=== PATIENT | female | born 1940 | race Caucasian/White ===

== ENCOUNTER 2021-12-02 13:39 | Emergency (ER) | payer MEDICARE, OTHER, SELFPAY ==
[2021-12-02 13:52] VITALS: BP 140/71; PULSE 97; RESP 18; TEMP 36.8; O2SAT 98; BMI 19.5
--- NOTE | 2021-12-02 14:24 | ED_ITS ---
HPI - General Adult General Chief complaint: Cough Stated complaint: Cough, nose runs continuously Time Seen by Provider: 12/02/21 13:42 Source: patient Mode of arrival: ambulatory Limitations: no limitations History of Present Illness HPI narrative: 81-year-old female coming in today complaining of runny nose and cough. States it has been going on for about 3 weeks. She states that she does have yearly allergies around this time, she generally treat her allergies with rest and hydration. Usually they last 1-2 weeks. Since they have been going on for 3 weeks this has her concerned. Cough can occur anytime of the day. Sometimes she spits up some phlegm. She denies any fevers or chills. No changes in her appetite. She is not weak or short of breath. Patient takes cholesterol medication and gabapentin her back pain. No new medications. She has not tried any allergy medications. Related Data Home Medications Medication Instructions Recorded Confirmed alendronate 70 mg tablet mg PO 12/02/21 cyclobenzaprine 10 mg tablet mg 12/02/21 gabapentin 300 mg capsule mg 12/02/21 simvastatin 40 mg tablet mg 12/02/21 Allergies Allergy/AdvReac Type Severity Reaction Status Date / Time Penicillins Allergy Intermediate Verified 12/02/21 13:58 Review of Systems Status of ROS: Reports: 10 or more systems reviewed and unremarkable except as noted in History and below Exam Narrative: Exam Narrative: Well-nourished well-developed patient in no acute distress. Alert and oriented. Answers questions appropriately. Mood and affect are appropriate. Thoughts are goal oriented and rational. No tangential or magical thinking noted. Patient speaks in full sentences without needing to catch their breath. Speech is not slurred or pressured. Patient is not appear ill or toxic. HEENT: Normocephalic atraumatic. Pupils are equally round reactive to light. Extraocular muscles are intact. Conjunctivae are moist without any icterus noted. Moist mucous membranes. Neck is supple. Nasal turbinates are slightly boggy and swollen. Cardiovascular: Heart is regular rate and rhythm S1 and S2 are present without any murmurs. Lungs: Clear to auscultation bilaterally no wheezes rhonchi or rales are appreciated. Patient takes deep breaths without any discomfort. Skin: Well perfused without any obvious rashes. Const: Vital Signs, click to edit/add: Vital Signs - 24 hr 12/02/21 13:52 Temperature 98.3 F Pulse Rate [Pulse Oximeter] 97 Respiratory Rate 18 Blood Pressure [Ri ght Upper Arm] 140/71 H Pulse Oximetry 98 Oxygen Delivery Me thod Room Air Course Vital Signs Vital signs: Initial Vital Signs Temperature 98.3 F 12/02/21 13:52 Temperature Source Temporal Artery Scan 12/02/21 13:52 Pulse Rate 97 12/02/21 13:52 Respiratory Rate 18 12/02/21 13:52 Blood Pressure 140/71 H 12/02/21 13:52 Blood Pressure Mean 94 12/02/21 13:52 Blood Pressure Position Supine 12/02/21 13:52 Pulse Oximetry 98 12/02/21 13:52 Oxygen Delivery Method 12/02/21 13:52 Vital Signs Temperature 98.3 F 12/02/21 13:52 Pulse Rate 97 12/02/21 13:52 Respiratory Rate 18 12/02/21 13:52 Blood Pressure 140/71 H 12/02/21 13:52 Pulse Oximetry 98 12/02/21 13:52 Oxygen Delivery Method 12/02/21 13:52 Temperature 98.3 F 12/02/21 13:52 Pulse Rate 97 12/02/21 13:52 Respiratory Rate 18 12/02/21 13:52 Blood Pressure 140/71 H 12/02/21 13:52 Pulse Oximetry 98 12/02/21 13:52 Oxygen Delivery Method 12/02/21 13:52 Medical Decision Making MDM Narrative Medical decision making narrative: 81-year-old female with seasonal allergies. We discussed [id number] antihistamines and steroid nasal sprays. We discussed reasons for follow-up. Patient was agreeable had no other questions. Discharge Plan Discharge Clinical Impression: Post-nasal drip, Seasonal allergic rhinitis Patient Disposition: Home, Self-Care Condition: Stable Additional Instructions: Recommend you start a daily allergy medication such as Claritin or Zyrtec. These can be purchased [id number] and they are non drowsy. You can also try taking a Benadryl in the evening-this can make you very sleepy. Lastly recommend a Flonase or Nasonex nasal spray. This will dry up the nose and should help with your cough as well. This can also be purchased [id number]. Follow-up with your primary care provider as needed. Return to the ER if you develop a fever or worsening cough. Prescriptions: No Action cyclobenzaprine 10 mg tablet alendronate 70 mg tablet PO Label Comments: TAKE 1 TABLET BY MOUTH ONCE A WEEK IN THE MORNING. TAKE ON AN EMPTY STOMACH WITH FULL GLASS OF WATER. DO NOT LIE DOWN FOR 1 HOUR simvastatin 40 mg tablet gabapentin 300 mg capsule Follow Up/Referrals: Yessenia Cross MD [Primary Care Provider] - Stand Alone Forms: [facility] Info Instructions
[2021-12-02 14:36] VITALS: BP 140/71; PULSE 97; RESP 18; TEMP 36.8
== END 2021-12-02 14:38 | disposition home or self-care (01) ==
LOC: ED 14:36
PROVIDERS: Emergency Provider Family Medicine; PCP Family Medicine
DX: J30.9 Allergic rhinitis, unspecified (principal)
CPT/HCPCS: 99283

== ENCOUNTER 2022-01-15 10:30 | Outpatient (CLI) | payer MEDICARE, OTHER, SELFPAY | END 2022-01-15 10:31 | disposition home or self-care (01) | PROVIDERS: PCP Family Medicine; Visit Provider Family Medicine | DX: M51.36 Other intervertebral disc degeneration, lumbar region (principal); M54.16 Radiculopathy, lumbar region | CPT/HCPCS: 64483; J1100; Q9966 ==

== ENCOUNTER 2022-07-26 09:43 | Outpatient (CLI) | payer MEDICARE, OTHER, SELFPAY | END 2022-07-26 09:44 | disposition home or self-care (01) | LOC: INJ CL 09:45 | PROVIDERS: Visit Provider Family Medicine | DX: M51.36 Other intervertebral disc degeneration, lumbar region (principal); M54.16 Radiculopathy, lumbar region | CPT/HCPCS: 62323; J0702; Q9966 ==

== ENCOUNTER 2022-08-25 07:32 | Emergency (ER) | payer MEDICARE, OTHER, SELFPAY ==
[2022-08-25 07:41] VITALS: BP 146/103; PULSE 66; RESP 20; TEMP 35.9; O2SAT 96; BMI 19.0
--- NOTE | 2022-08-25 08:30 | ED.NURSE ---
did cleanse wound with saline. used bacitracin, Telfa, Kerlix and Coban.
--- NOTE | 2022-08-25 09:10 | ED.GENADULT ---
HPI - General Adult General Chief complaint: Skin/Abscess/Foreign Body Stated complaint: Right arm laceration Time Seen by Provider: 08/25/22 08:04 Source: patient Mode of arrival: ambulatory Limitations: no limitations History of Present Illness HPI narrative: Patient is an 81-year-old woman who 1 week ago had a wooden frame fall against her right upper arm and sustained a skin tear. She said normally she would have come in right away but she had 20 people saying her house for a so she just bandaged it up. She looked at it this morning and thought maybe it was infected. Related Data Home Medications Medication Instructions Recorded Confirmed alendronate 70 mg tablet mg PO 12/02/21 cyclobenzaprine 10 mg tablet mg 12/02/21 gabapentin 300 mg capsule mg 12/02/21 simvastatin 40 mg tablet mg 12/02/21 Allergies Allergy/AdvReac Type Severity Reaction Status Date / Time Penicillins Allergy Intermediate Verified 12/02/21 13:58 aspirin [From Percodan] Allergy Verified 07/26/22 10:33 diphenhydramine Allergy Verified 07/26/22 10:33 [From Benadryl] oxycodone Allergy Verified 07/26/22 10:33 PFSH PFSH Social History Smoking Status: Current some day smoker How often do you have a drink containing alcohol: never How often do you have six or more drinks on one occasion: Never AUDIT-C Alcohol total score: 0 Non-prescribed substance use: denies use service: No Exam Narrative: Exam Narrative: Vital signs reviewed In general, alert, well-appearing elderly woman. Extremities: Examination of the right upper extremity shows a skin tear. The upper half of it is exposed and the lower half is covered by the displaced skin, which is slightly bunched since it is not stretched over the entire wound. Overall however the wound looks healthy and is healing well. There is no surrounding erythema or drainage. Const: Vital Signs, click to edit/add: Vital Signs - 24 hr 08/25/22 07:41 Temperature 96.7 F L Pulse Rate [Pulse Oximeter] 66 Respiratory Rate 20 Blood Pressure [Le ft Upper Arm] 146/103 H Pulse Oximetry 96 Oxygen Delivery Me thod Room Air Course Course Hospital Course: I did attempt to gently lift the edge of the skin to see if I could stretch over the entire wound but it is well adhered at this point and began to bleed as I lifted it, so I have recommended to her that we just leave it as is. I think this will heal just fine although I told her it probably will take several weeks for it to heal completely. In the meantime I have recommended using an ointment such as Vaseline keeping it covered, and in the unlikely event that she develops any signs of infection to be seen again. Her tetanus is up-to-date. She is comfortable with that plan. Vital Signs Vital signs: Initial Vital Signs Temperature 96.7 F L 08/25/22 07:41 Temperature Source Temporal Artery Scan 08/25/22 07:41 Pulse Rate 66 08/25/22 07:41 Pulse Rhythm Regular 08/25/22 07:41 Respiratory Rate 20 08/25/22 07:41 Blood Pressure 146/103 H 08/25/22 07:41 Blood Pressure Mean 117 H 08/25/22 07:41 Blood Pressure Position Sitting 08/25/22 07:41 Pulse Oximetry 96 08/25/22 07:41 Oxygen Delivery Method Room Air 08/25/22 07:41 Vital Signs Temperature 96.7 F L 08/25/22 07:41 Pulse Rate 66 08/25/22 07:41 Respiratory Rate 20 08/25/22 07:41 Blood Pressure 146/103 H 08/25/22 07:41 Pulse Oximetry 96 08/25/22 07:41 Oxygen Delivery Method Room Air 08/25/22 07:41 Temperature 96.7 F L 08/25/22 07:41 Pulse Rate 66 08/25/22 07:41 Respiratory Rate 20 08/25/22 07:41 Blood Pressure 146/103 H 08/25/22 07:41 Pulse Oximetry 96 08/25/22 07:41 Oxygen Delivery Method Room Air 08/25/22 07:41 Discharge Plan Discharge Clinical Impression: Skin tear Patient Disposition: Home, Self-Care Condition: Stable Instructions: Skin Tear (ED) Additional Instructions: Keep an ointment such as Vaseline or Aquaphor on this while it heals and keep it covered. Change the dressing about once a day or after you shower. I do not anticipate any problems with infection but if you see increasing redness, swelling or pain return for re-evaluation. It will probably take several weeks for this to completely heal. Prescriptions: No Action cyclobenzaprine 10 mg tablet alendronate 70 mg tablet PO Patient Comments: TAKE 1 TABLET BY MOUTH ONCE A WEEK IN THE MORNING. TAKE ON AN EMPTY STOMACH WITH FULL GLASS OF WATER. DO NOT LIE DOWN FOR 1 HOUR simvastatin 40 mg tablet gabapentin 300 mg capsule Follow Up/Referrals: Provider,Not a Local [Referring] - Stand Alone Forms: [facility] Info Instructions
== END 2022-08-25 08:35 | disposition home or self-care (01) ==
PROVIDERS: Emergency Provider Emergency Medicine; PCP Family Medicine
DX: S41.111A Laceration without foreign body of right upper arm, initial encounter (principal)
CPT/HCPCS: 99282; 99283

== ENCOUNTER 2022-12-03 10:01 | Outpatient (CLI) | payer MEDICARE, OTHER, SELFPAY | END 2022-12-03 10:02 | disposition home or self-care (01) | LOC: INJ CL 10:03 | PROVIDERS: PCP Family Medicine; Visit Provider Family Medicine | DX: M51.36 Other intervertebral disc degeneration, lumbar region (principal); M54.16 Radiculopathy, lumbar region | CPT/HCPCS: 62323; J0702; Q9966 ==

== ENCOUNTER 2023-05-24 12:08 | Outpatient (CLI) | payer MEDICARE, OTHER, SELFPAY ==
--- OUTSIDE RECORDS SUMMARY | 2023-05-29 06:10 | XMS_ITS | Clinical Summary ---
Author Name Unknown Organization [facility] Address [place], [place] [address] Care Team Providers Care Percolator Operator Name Role Phone Clare Marin DO Primary Care Provider [phone] Allergies Active Allergy Reactions Criticality Noted Date Comments Diphenhydramine *Unknown - Pt Doesn't Remember 08/12/2018 Oxycodone Nausea Only 08/05/2018 Penicillins 06/17/2006 Oxycodone-Aspirin Nausea Only,Dizziness 009 Medications Medication Sig Dispensed Refills Start Date End Date Status zinc 15 mg tablet Take 15 mg by mouth. Once weekly 0 0 Active multivitamin (MVI) tablet Take 1 tablet by mouth once daily. 0 0 Active cholecalciferol (VITAMIN D) 1,000 unit capsuleIndications: Vitamin D deficiency Take 2 capsules by mouth once daily. 0 3 Active cyclobenzaprine (FLEXERIL) 10 mg tabletIndications:D DD (degenerative disc disease), lumbar Take 1 Tablet (10 mg) by mouth every 8 hours if needed for Muscle Spasm. 30 Tablet 3 Active simvastatin (ZOCOR) 40 mg tabletIndications:M ixed hyperlipidemia Take 1 Tablet (40 mg) by mouth at bedtime. 90 Tablet 3 3 Active alendronate (FOSAMAX) 70 mg tabletIndications:O steopenia, unspecified location Take 1 Tablet (70 mg) by mouth once a week in the morning. Take on empty stomach with full glass of water. Do not lie down for 1 hr. 13 Tablet 2 3 Active gabapentin (NEURONTIN) 300 mg capsuleIndications: Hereditary and idiopathic peripheral neuropathy TAKE 1 CAPSULE(300 MG) BY MOUTH TWICE DAILY 180 Capsule 4 Active gabapentin (NEURONTIN) 300 mg capsuleIndications: Hereditary and idiopathic peripheral neuropathy Take 1 Capsule (300 mg) by mouth two times daily. 180 Capsule 3 3 05/18/19 24 Discontinued mupirocin (BACTROBAN OINTMENT) ointmentIndications :Abscess Apply topically to affected area(s) three times daily for 5 days. 22 g 4 05/28/19 24 Active Problems Problem Noted Date Diagnosed Date Seasonal allergic rhinitis 05/06/202205/06 Post-nasal drip 05/06/2022 05/06/2022 Lumbosacral radiculopathy at L5 05/06/2022 05/06/2022 Sensorineural hearing loss of both ears 04/22/19 Tinnitus 04/22/2019 Osteopenia 05/01/2017 DDD (degenerative disc disease), lumbar 04/18/19 17 Overview: Multilevel with foraminal stenosis Acute back pain with sciatica 12/19/2015 Other seborrheic keratosis 11/27/2011 Vitamin D deficiency 05/25/2009 Actinic keratosis 05/25/2009 Mixed hyperlipidemia 02/11/2007 Tobacco use disorder 01/28/2007 Unspecified hereditary and idiopathic peripheral neuropathy 06/17/2006 Overview: left foot only: lateral 3 toes: improved with Neurontin. 07/04/2010 Encounters Date Type Department Care Team Description 05/26/2023 2:10 PM CDT Office Visit [facility] [address] [place] [address] Clare Marin, DO Syncope (Pt reports fainting Friday morning 05/23 - felt woozy prior to this happening, did hit head but reports not losing consciousness - no headaches or vision changes. Was checked out by EMS, vitals were stable ) 05/26/2023 Travel 05/26/2023 Telephone [facility] [address] [place] [address] Clare Marin, DO Dizziness 05/23/2023 3:00 PM CDT Office Visit [facility] [address] [place] [address] Clare Marin, DO Leg Pain/problem (Lump on L navarro from metal puncture, x2 months); Derm Problem (Spot on tip of nose x3 years would like looked at); Ear Problem (Look in ears - see if they need to be cleaned out) 05/23/2023 Travel 05/17/2023 Refill [facility] [address] [place] [address] gNa Sanchez MD Refill Request (Gabapentin) from Last 3 Months Immunizations Name Administration Dates Next Due COVID-19 vaccine (Moderna 100mcg/0.5mL) PF, MDV 05/09/2021,12/06/2020,04/28/2020,2020 COVID-19 vaccine ([employer] NT[employer] 30mcg/0.3mL) 12YO+ BIVALENT PF, MDV 11/21/2021 Influenza, High-dose Inactivated 11/21/2015,11/11,10/19/2013 Influenza, IIV3 (Age >=3 years) 12/23/2012,01/21,01/28/2007 Influenza, IIV4 11/08/2018 Influenza, IIV4 (=>6mos) MDV 11/08/2018 Influenza, Inactivated AIIV4 (Age 65+ Years) Preserv Free 11/15/2021,11/02/2020,11/04/2019 Influenza, Inactivated IIV3 (Age 65+ Years) Preserv Free 11/25/2017,10/22/2016 Pneumococcal Poly,23-Valent (Pneumovax) 01/28/2007 Pneumococcal conj 13-Valent (Prevnar 13) 11/29/2014 Td (Age >=7 Years) 07/24/2020,11/22/2004 Td, Preservative Free (age > = 7 Years) 11/22/2004 Tdap 08/06/2011 Zoster (Shingrix-RZV, recombinant) 07/18/2017, Zoster (Zostavax-ZVL, live) 01/28/2007 Family History Medical History Relation Name Comments Alcohol/Drug Father Monster Conrad Heart Disease Father Monster Conrad Other Father Monster Conrad smoker Cancer-breast Maternal Aunt 1 over 50 Cancer-colon Maternal Aunt 1 Other Maternal Aunt 2 liver Other Maternal Aunt 3 lung Diabetes Maternal Grandmother Heart Disease Maternal Grandmother Psychiatric illness Maternal Grandmother Psychiatric illness Mother Chelsea Cancer-breast Other 1 x2 cousin Psychiatric illness Other 2 cousin Cancer-colon Paternal Grandfather Other Paternal Grandfather liver Arthritis Paternal Grandmother Other Sister 4 Rosario Bowel Problems: unpredictable loose stools Relation Name Status Comments Brother Steven Alive Father Monster Conrad (Age 69) M I; driving himself to the hospital Maternal Aunt 1 Maternal Aunt 2 Maternal Aunt 3 Maternal Grandmother Mother Chelsea Alive Other 1 Other 2 Paternal Grandfather Paternal Grandmother Sister 1 Vi Alive Sister 2 Taniya Alive Sister 3 Kaci (Age 43) Brynmaxime Wade y: Heart Problems when young Sister 4 Rosario Social History Tobacco Use Types Packs/Day Years Used Date Smoking Tobacco: Light Smoker Cigarettes 0.3 46 Smokeless Tobacco: Never Tobacco Cessation:Ready to Q uit: Not Asked; Counseling Given: Not Answered Comments:<1 pk/week Alcohol Use Standard Drinks/Week Comments No 0 (1 standard drink = 0.6 oz pur e alcohol) PHQ-2 Answer Date Recorded PHQ-2 TOTAL SCORE 0 06/05/2022 Social Connections Answer Date Recorded Frequency of Communication with Friends and Fami ly 0 06/02/2022 Financial Resource Strain Answer Date R ecorded Difficulty of Paying Living Expenses 3 06/02/2022 Difficulty of Paying Living Expenses Not on file 06/02/2022 Food Insecurity Answer Date Recorded Worried About Running Out of Food in the Last Ye ar 1 06/02/2022 Transportation Needs Answer Date Record ed Lack of Transportation (Medical) 1 06/02/2022 Housing Stability Answer Date Recorded Unable to Pay for Housing in the Last Year 1 06/02/2022 Sex and Gender Information Value Date Recorded Sex Assigned at Not on file Gender Identity Not on file Sexual Orientation Not on file Obstetrics History Para Term AB IAB SAB Ectopic Multiple Livin g Live Births 3 3 3 Date Outcome GA Total Labor Labor/2nd/3rd Weight Sex Delivery Anes PTL Tasha A1 A5 Name Cl in Para Para Para Last Filed Vital Signs Vital Sign Reading Time Taken Comments Blood Pressure 109/63 05/26/2023 2:17 PM CDT Pulse 81 05/26/2023 2:17 PM CDT Temperature 36.9 ??C (98.4 ??F) 07/16/2022 3:50 PM CD T Respiratory Rate 16 07/16/2022 3:50 PM CDT Oxygen Saturation 95% 05/26/2023 2:17 PM CDT Inhaled Oxygen Concentration - - Weight 47.7 kg (105 lb 3.2 oz) 05/23/2023 2:10 P M CDT Height 157.5 cm (5' 2) 07/16/2022 3:50 PM CDT Body Mass Index 19.24 07/16/2022 3:50 PM CDT Plan of Treatment Health Maintenance Due Date Last Done Comments Depression screening for age 12+ 06/06/2023 06/05/2022, 05/23/2021, 02/09/2020, Additional history exists Medicare Wellness for age 65+ 06/06/2023, 05/23/2021, 02/09/2020, Additional history exists BMI (ht and wt on same day) for age 18+ 07/17/2023 07/16/2022, 06/05/2022, 05/23/2021, Additional history exists Influenza for age 65+ 10/12/2023 11/15/2021 , 11/02/2020, 11/04/2019, Additional history exists Tetanus booster 07/24/2030 07/24/2020, 07/12, 11/22/2004, Additional history exists Tdap Completed 08/06/2011 Pneumococcal series for age 65+ Completed 5, 01/28/2007 Zoster (shingles) series for age 50+ Completed 07/18/2017, 05/15/2017, 01/28/2007 DEXA/DXA scan for age 65+ Completed 2022, 06/14/2020, 06/05/2017, Additional history exists COVID-19 vaccine series Completed 11/09/19 23, 11/21/2021, 05/09/2021, Additional history exists Procedures Procedure Name Priority Date/Time Associated Diagnosis Comments XR DXA BONE DENSITY 2 SITES AXIAL Routine 08/29/2022 10:32 AM CDT Osteopenia, unspecified location Other specified disorders of bone density and structure, other site from Last 3 Months or Most Recently Relevant to Health Maintenance Results * (ABNORMAL) XR DXA BONE DENSITY 2 SITES AXIAL (08/29/2022 10:32 AM CDT) Anatomical Region Laterality Modality Spine, HIPS, HIPL, HIPR Other Impressions 09/03/2022 2:48 PM CDT Osteopenia. Due to the stability of the bone density, continue present medication if indicated. RECOMMENDATIONS: The National Osteoporosis Foundation recommends pharmacologic treatment for patients with T-scores of -2.5 or less, patients with prior history of fragility fractures, or patients with 10-year probability of greater than 3% at hips or greater than 20% of suffering major osteoporotic fractures. Recommend continued optimization of calcium and vitamin D intake through dietary means and/or supplementation and regular exercise. Repeat scan recommended in 2 years. Laisha Mehta PA-C [facility] 09/03/2022 Narrative 09/03/2022 2:48 PM CDT For Patients: Results are automatically released to your [facility] [email or web address] account once available, in compliance with federal regulations. This means that you may see your results before your provider has had a chance to review them. Please allow 2-3 business days for your provider to comment on the results. XR DXA Bone Mineral Density (BMD) EXAM LOCATION: [address] [address] PATIENT NAME: Heidi Sarah DATE OF : 1940 EXAM DATE: 08/29/2022 REQUESTING PROVIDER: Nga Sanchez MD GENDER AT : female HEIGHT: 5' 2 (07/16/2022) WEIGHT: ??111 lb 8 oz (07/16/2022) MENOPAUSAL STATUS: Postmenopausal RACE/ETHNICITY: White RISK FACTORS: Family History of Osteoporosis, Height Loss (2 inches or more), Smoking (current), Smoking (prior), Weight < 127 lbs., and White Race CURRENT MEDICATION FOR BONE LOSS: Alendronate (Fosamax) INDICATION: Follow-up of existing osteopenia and Follow-up of pharmacologic treatment COMPARISON DATE(S): 2020 DXA scans are compared to prior studies for a patient only when the two (or more) studies were performed on the same scanner. It is not possible to compare data generated on one scanner to data from another because there are not standards in DXA equipment. This applies even if the two scanners are made by the same engineering project manager. PROCEDURE: Dual-energy x-ray absorptiometry performed with routine technique. Reporting is completed in the form of a T-score. The T-score represents the standard deviation from peak bone mass based on young healthy adult. A Z-score is used for diagnosis in premenopausal women, and for men under the age of 50. FINDINGS: RESULT LUMBAR SPINE L1 - L2 ??(EXCLUDE L3, L4) BMD: 1.665 g/cm2 T-Score: + 4.0 Z-Score: + 6.4 RESULTS FEMUR Left femoral neck BMD: 0.777 g/cm2 T-Score: - 1.9 Z-Score: + 0.6 Change from prior in 2020: ??Decrease 3.4%. Right femoral neck BMD: 0.834 g/cm2 T-Score: - 1.5 Z-Score: + 1.0 Change from prior in 2020: ??Increase 2.5%. Left hip BMD: 0.847 g/cm2 T-Score: - 1.3 Z-Score: + 1.1 Change from prior in 2020: ??Increase 0.8%. Right hip BMD: 0.896 g/cm2 T-Score: - 0.9 Z-Score: + 1.5 Change from prior in 2020: ??Increase 1.6%. WHO criteria: Normal: T-score at or above -1 SD Osteopenia: T-score between -1.1 and -2.4 SD Osteoporosis: T-score at or below -2.5 SD Nga Sanchez MD DEXA from Last 3 Months or Most Recently Relevant to Health Maintenance Advance Directives Documents on File Type Date Recorded Patient Scientist Propagator Expl anation Healthcare Directive 03/06/2015 9:15 AM [facility] E [facility], TERRIE [place], 04/18/1983 Care Teams Percolator Operator Relationship Specialty Start Date End Date Clare Marin DO [address] [place] [address] PCP - General Family Practice 09/13/22
== END 2023-05-24 12:09 | disposition home or self-care (01) ==
LOC: AMB 05-29 06:09
PROVIDERS: PCP Family Medicine; Visit Provider Family Medicine
DX: R55 Syncope and collapse (principal)
CPT/HCPCS: A0998

== ENCOUNTER 2023-06-24 12:42 | Emergency (ER) | payer MEDICARE, OTHER, SELFPAY ==
[2023-06-24 13:17] VITALS: BP 150/79; PULSE 80; RESP 18; TEMP 36.9; O2SAT 96; BMI 18.4
--- NOTE | 2023-06-24 13:45 | CT_ITS ---
Patient: GLADIS MATHIS Facility:?[facility] Patient ID:?[id number] Site Patient ID:?[id number]. Site :?1940 Study:?CT-Abdomen/Pelvis WO-06/24/2023 2:18:19 PM Ordering Physician:CAITLIN Final Report: INDICATION: Left flank pain. TECHNIQUE: CT abdomen and pelvis without contrast. COMPARISON: None. FINDINGS: Limited evaluation of the intra-abdominal solid organs without IV contrast. Lower chest: Unremarkable. Liver: Lobulated right hepatic lobe. Small fluid adjacent to the right liver. Gallbladder and bile ducts: Cholelithiasis. No definite thickening of the gallbladder wall. No pericholecystic fluid. Pancreas: Unremarkable. No mass or inflammation. Spleen: Normal in size. No masses. Adrenal glands: Normal in size. No nodules. Kidneys: Normal in size. No suspicious masses, stones, or hydronephrosis. GI tract: A few scattered colonic diverticuli. No evidence of diverticulitis. No bowel obstruction. Appendix is not well visualized. Vasculature: Abdominal aorta is normal in caliber. Lymph nodes: No lymphadenopathy. Peritoneum/Abdominal Wall: Unremarkable. No sign of mass or infiltration. No free air or significant free fluid. Pelvis: Unremarkable. No pelvic masses. Bones: Scoliosis of the spine. Degenerative changes. Otherwise unremarkable for age. IMPRESSION: No acute intra-abdominal process identified. No renal stones or hydronephrosis. Please note that all CT scans at this facility use dose modulation, iterative reconstruction, and/or weight-based dosing when appropriate to reduce radiation dose to as low as reasonably achievable. Dictated by Go Kelley MD @ 06/24/2023 3:16:06 PM Signed by:?Go Kelley MD @06/24/2023 3:16:06 PM (Electronic Signature)
--- OUTSIDE RECORDS SUMMARY | 2023-06-24 13:51 | XMS_ITS | Clinical Summary ---
Author Name Unknown Organization [facility] Address [place], [place] [address] Care Team Providers Care Barrel And Receiver Aligner Name Role Phone Clare Marin DO Primary Care Provider [phone] Allergies Active Allergy Reactions Criticality Noted Date Comments Diphenhydramine *Unknown - Pt Doesn't Remember 08/12/2018 Oxycodone Nausea Only 08/05/2018 Penicillins 06/17/2006 Oxycodone-Aspirin Nausea Only,Dizziness 009 Medications Medication Sig Dispensed Refills Start Date End Date Status zinc 15 mg tablet Take 15 mg by mouth. Once weekly 0 05/25/2009 Active multivitamin (MVI) tablet Take 1 tablet by mouth once daily. 0 05/25/2009 Active cholecalciferol (VITAMIN D) 1,000 unit capsuleIndications:V itamin D deficiency Take 2 capsules by mouth once daily. 0 12/23/2012 Active cyclobenzaprine (FLEXERIL) 10 mg tabletIndications:DD D (degenerative disc disease), lumbar Take 1 Tablet (10 mg) by mouth every 8 hours if needed for Muscle Spasm. 30 Tablet 05/06/2022 Active simvastatin (ZOCOR) 40 mg tabletIndications:Mi xed hyperlipidemia Take 1 Tablet (40 mg) by mouth at bedtime. 90 Tablet 3 06/05/2022 Active alendronate (FOSAMAX) 70 mg tabletIndications:Os teopenia, unspecified location Take 1 Tablet (70 mg) by mouth once a week in the morning. Take on empty stomach with full glass of water. Do not lie down for 1 hr. 13 Tablet 2 01/02/2023 Active gabapentin (NEURONTIN) 300 mg capsuleIndications:H ereditary and idiopathic peripheral neuropathy TAKE 1 CAPSULE(300 MG) BY MOUTH TWICE DAILY 180 Capsule 05/18/2023 Active mupirocin (BACTROBAN OINTMENT) ointmentIndications: Abscess Apply topically to affected area(s) three times daily for 5 days. 22 g 05/23/2023 Active Problems Problem Noted Date Diagnosed Date Seasonal allergic rhinitis 05/06/202205/06 Post-nasal drip 05/06/2022 05/06/2022 Lumbosacral radiculopathy at L5 05/06/2022 05/06/2022 Sensorineural hearing loss of both ears 04/22/19 Tinnitus 04/22/2019 Osteopenia 05/01/2017 DDD (degenerative disc disease), lumbar 04/18/19 Overview: Multilevel with foraminal stenosis Acute back pain with sciatica 12/19/2015 Other seborrheic keratosis 11/27/2011 Vitamin D deficiency 05/25/2009 Actinic keratosis 05/25/2009 Mixed hyperlipidemia 02/11/2007 Tobacco use disorder 01/28/2007 Unspecified hereditary and idiopathic peripheral neuropathy 06/17/2006 Overview: left foot only: lateral 3 toes: improved with Neurontin. 07/04/2010 Encounters Date Type Department Care Team Description 06/10/2023 Telephone [facility] [address] [place] [address] Terrell Salguero MD Error-please disregard 06/09/2023 Telephone [facility] [address] [place] [address] Terrell Salguero MD Appointment Request (Back pain) 05/26/2023 2:10 PM CDT Office Visit [facility] [address] [place] [address] Clare Marin, DO Syncope (Pt reports fainting Friday morning 05/23 - felt woozy prior to this happening, did hit head but reports not losing consciousness - no headaches or vision changes. Was checked out by EMS, vitals were stable ) 05/26/2023 Travel 05/26/2023 Telephone [facility] [address] [place] [address] Clare Marin Tasha, DO Dizziness 05/23/2023 3:00 PM CDT Office Visit [facility] [address] [place] [address] [address] Sir Marini Tasha, DO Leg Pain/problem (Lump on L navarro from metal puncture, x2 months); Derm Problem (Spot on tip of nose x3 years would like looked at); Ear Problem (Look in ears - see if they need to be cleaned out) 05/23/2023 Travel 05/17/2023 Refill [facility] [address] [place] [address] Nga Sanchez MD Refill Request (Gabapentin) from Last 3 Months Immunizations Name Administration Dates Next Due COVID-19 vaccine (Moderna 100mcg/0.5mL) PF, MDV 05/09/2021,12/06/2020,04/28/2020,2020 COVID-19 vaccine (Virtru-Bio NTech 30mcg/0.3mL) 12YO+ BIVALENT PF, MDV 11/21/2021 [...] Taniya Alive Sister 3 Kaci (Age 43) Jonelle Wade y: Heart Problems when young Sister [...] of Communication with Friends and Fami ly Not on file 06/09/2023 Financial Resource Strain Answer Date R ecorded [...] 07/16/2022 3:50 PM CDT Plan of Treatment Upcoming Encounters Date Type Department Care Team (Late st Contact Info) Description 07/04/2023 10:40 AM CDT Office Visit [facility] at [facility] [address] [place] [address] Terrell Salguero MD [address] [place] [address] 08/08/2023 9:20 AM CDT Office Visit [facility] [address] [place] [address] Terrell Salguero MD [address] [place] [address] Health Maintenance Due Date Last Done Comments [...] Additional history exists COVID-19 vaccine series Completed 11/09/19, 11/21/2021, 05/09/2021, Additional history exists Procedures Procedure [...] recommended in 2 years. Laisha Mehta PA-C [facility] 09/03/2022 Narrative 09/03/2022 2:48 PM CDT For Patients: Results are automatically released to your [employer]) account once available, in compliance with federal regulations. This means that you may see your results before your provider has had a chance to review them. Please allow 2-3 business days for your provider to comment on the results. XR DXA Bone Mineral Density (BMD) EXAM LOCATION: [address] [address] PATIENT NAME: Heidi Sarah DATE OF : [...] two scanners are made by the same gas regulator repairer helper. PROCEDURE: Dual-energy x-ray absorptiometry performed with routine [...] Documents on File Type Date Recorded Patient Research Methods Instructor Expl anation Healthcare Directive 03/06/2015 9:15 AM TH TERRIE ANTOINE, 04/18/1983 Care Teams Barrel And Receiver Aligner Relationship Specialty Start Date End Date Clare Marin DO [address] [place] [address] PCP - General Family Practice 09/13/22
--- NOTE | 2023-06-24 13:54 | ED_ITS ---
HPI - General Adult General Date Seen: 06/24/23 Chief complaint: Back Injury/Pain Stated complaint: back pain Time Seen by Provider: 06/24/23 13:12 Source: patient, RN notes reviewed and old records reviewed Mode of arrival: ambulatory Limitations: no limitations History of Present Illness HPI narrative: Patient is an 82-year-old woman who presents with back pain. She notes that she does have a very long history of back pain, osteoarthritis, scoliosis etcetera. However, she has been having pain in her left flank which is an unusual place for her to have back pain. It has been persistent for the past several days, she can not get comfortable, not specifically worsened with movement and she has been having difficulty sleeping. She denies any respiratory symptoms, pleuritic pain, fevers. She has not had urinary symptoms, abdominal pain, nausea vomiting diarrhea black or bloody stools. She has no radiating pain. She did have a fall about a month ago, but says after couple of days her brief increase in pain related to the fall seem to resolve. She was seen at [facility] a few days after that, no imaging was done and she says overall she has been feeling fine until the last few days. She denies any unexpected weight loss or night sweats. She does smoke, lives independently. Describes herself as generally healthy. Notes that stronger pain medications cause an upset stomach. Related Data Home Medications Medication Instructions Recorded Confirmed alendronate 70 mg tablet 70 mg PO .weekly 12/02/21 06/24/23 gabapentin 300 mg capsule 300 mg PO Q12H 12/02/21 06/24/23 simvastatin 40 mg tablet 40 mg PO DAILY 12/02/21 06/24/23 cholecalciferol (vitamin D3) 25 1,000 unit PO DAILY 06/24/23 06/24/23 mcg (1,000 unit) capsule cyclobenzaprine 10 mg tablet 10 mg PO Q8H PRN 06/24/23 06/24/23 zinc 15 mg tablet 15 mg PO DAILY 06/24/23 06/24/23 Previous Rx's Medication Instructions Recorded tramadol 50 mg tablet 50 mg PO QHS #10 tabs 06/24/23 Allergies Allergy/AdvReac Type Severity Reaction Status Date / Time Penicillins Allergy Intermediate Verified 06/24/23 13:22 aspirin [From Percodan] Allergy Verified 06/24/23 13:22 diphenhydramine Allergy Verified 06/24/23 13:22 [From Benadryl] oxycodone Allergy Verified 06/24/23 13:22 Review of Systems Status of ROS: Reports: 10 or more systems reviewed and unremarkable except as noted in History and below [facility] Social History Smoking Status: Current some day smoker What tobacco products do you use: cigarettes Do you use any of these nicotine containing products: None Second hand tobacco smoke exposure: No How often do you have a drink containing alcohol: never How often do you have six or more drinks on one occasion: Never AUDIT-C Alcohol total score: 0 Non-prescribed substance use: denies use service: No Exam Narrative: Exam Narrative: Vital signs as noted above. In general, an alert, well-appearing patient. Head: Normocephalic, atraumatic. Eyes: Pupils are equal reactive. Extraocular movements are full. Conjunctivae are normal. ENT: Mucous membranes are moist. Neck: Supple without lymphadenopathy. Heart: Regular rate and rhythm. No murmur or rub. Lungs: Clear bilaterally. No increased work of breathing, crackles or wheezes. Abdomen: Soft and nontender. No organomegaly. No CVA tenderness, no tenderness of the flank to palpation. Back: Nontender to palpation. Scoliosis. Extremities: Well perfused. No edema. No calf tenderness. Pulses intact. Neurologic: Patient is alert and oriented to person and place. Speech is fluent. Face is symmetric. Moves all extremities equally. Affect: Normal. Skin: Warm and dry. Well perfused. Const: Vital Signs, click to edit/add: Vital Signs - 24 hr 06/24/23 13:17 Temperature 98.4 F Pulse Rate [Pulse Oximeter] 80 Respiratory Rate 18 Blood Pressure [Le ft Upper Arm] 150/79 H Pulse Oximetry 96 Oxygen Delivery Me thod Room Air Documenting provider has reviewed patient's vital signs: yes Course Course ED Course: Workup here is unremarkable. CBC is normal, metabolic panel was normal, creatinine is 0.8. UA is negative. Patient with a longstanding history of back pain presents with left flank pain. It is possible this is related to musculoskeletal causes, but I do think given that this is new pain for her that we should rule out other possible etiologies such as kidney stone, urinary tract infection, other renal pathology or infection. I have ordered labs, UA, CT scan of the abdomen pelvis without contrast. She declines the need for pain medication right now. Workup here is unremarkable. CBC metabolic panel are normal, creatinine is 0.8. UA is negative. CT scan read as negative by Radiology. Reviewed all this with the patient. She does not tolerate hydrocodone or oxycodone, it looks as if she was given tramadol in the past and does not recall that causing a problem, so I am giving her a few tramadol to use at night. Reviewed that if pain is not improving over the next few days, would recommend primary care follow-up. Return any time for acute worsening, severe uncontrolled pain, fever, vomiting, or other acute changes. She will follow-up with her back clinic at the end of [facility] as planned. Vital Signs Vital signs: Initial Vital Signs Temperature 98.4 F 06/24/23 13:17 Temperature Source Temporal Artery Scan 06/24/23 13:17 Pulse Rate 80 06/24/23 13:17 Pulse Rhythm Regular 06/24/23 13:17 Pulse Strength 3+ Normal 06/24/23 13:17 Respiratory Rate 18 06/24/23 13:17 Blood Pressure 150/79 H 06/24/23 13:17 Blood Pressure Mean 102 06/24/23 13:17 Blood Pressure Position Sitting 06/24/23 13:17 Pulse Oximetry 96 06/24/23 13:17 Oxygen Delivery Method Room Air 06/24/23 13:17 Vital Signs Temperature 98.4 F 06/24/23 13:17 Pulse Rate 80 06/24/23 13:17 Respiratory Rate 18 06/24/23 13:17 Blood Pressure 150/79 H 06/24/23 13:17 Pulse Oximetry 96 06/24/23 13:17 Oxygen Delivery Method Room Air 06/24/23 13:17 Temperature 98.4 F 06/24/23 13:17 Pulse Rate 80 06/24/23 13:17 Respiratory Rate 18 06/24/23 13:17 Blood Pressure 150/79 H 06/24/23 13:17 Pulse Oximetry 96 06/24/23 13:17 Oxygen Delivery Method Room Air 06/24/23 13:17 Medical Decision Making Lab Data Labs: Lab Results 06/24/23 06/24/23 Range/Units 13:58 14:29 WBC 6.91 (4.50-11.00) K/uL RBC 4.94 (4.00-5.20) m/uL Hgb 14.6 (12.0-16.0) gm/dL Hct 44.6 (33.0-51.0) % MCV 90 (80-100) fL MCH 30 (26-34) pg MCHC 33 (32-36) gm/dL RDW Coeff of Dede 14.5 (11.5-15.5) % Plt Count 205 (140-440) K/uL Neut % (Auto) 66.9 (42.0-72.0) % Lymph % (Auto) 22.4 (20-44) % Roberts % (Auto) 8.2 (0.0-11.0) % Eos % (Auto) 2.0 (0.0-7.0) % Baso % (Auto) 0.4 (0.0-3.0) % Neut # (Auto) 4.61 (1.7-7.0) K/uL Lymph # (Auto) 1.55 (0.90-2.90) K/uL Roberts # (Auto) 0.60 (0.00-0.90) K/UL Eos # (Auto) 0.14 (0.00-0.50) K/uL Baso # (Auto) 0.03 (0.00-0.30) K/uL Abs Immat Gran (auto) 0.01 (0.00-0.30) K/uL Imm/Tot Granulo (auto) 0.1 % Sodium 142 (135-149) mmol/L Potassium 4.1 (3.6-5.1) mmol/L Chloride 106 (96-114) mmol/L Carbon Dioxide 27 (20-32) mmol/L Anion Gap 9 (7-15) mEq/L BUN 20 (7-30) mg/dL Creatinine 0.8 (0.5-1.5) mg/dL Estimated Creat Clear 32.86 Estimated GFR 74 ml/min Glucose 88 (60-115) mg/dL Calcium 9.5 (8.4-10.6) mg/dL C-Reactive Protein 0.9 (0.5-1.0) mg/dL Urine Color Yellow (Yellow) Urine Appearance Clear (Clear) Urine pH 5.0 (5.0-8.5) Ur Specific [place] 1.025 (1.000-1.030) Urine Protein Negative (Negative) Urine Glucose (UA) Negative (Negative) Urine Ketones Trace A (Negative) Urine Blood Negative (Negative) Urine Nitrite Negative (Negative) Urine Bilirubin Negative (Negative) Urine Urobilinogen 0.2 (0.2-1.0) Ur Leukocyte Esterase Negative (Negative) Urine RBC 0-2 (0-2) Urine WBC 0-2 (0-5) Ur Squamous Epith Cells Few (None-Few) Amorphous Sediment Few A (None) Urine Bacteria None (None) Discharge Plan Discharge Clinical Impression: Left flank pain Patient Disposition: Home, Self-Care Condition: Stable Instructions: Flank Pain (ED) Additional Instructions: Return for severe worsening symptoms such as fever, vomiting, etcetera. Follow- up with primary care if not improving over the next few days. Try tramadol at night. Keep appointment with back clinic at end of July as planned. Prescriptions: New tramadol 50 mg tablet 50 mg PO QHS Qty: 10 0RF No Action alendronate 70 mg tablet 70 mg PO .weekly Patient Comments: TAKE 1 TABLET BY MOUTH ONCE A WEEK IN THE MORNING. TAKE ON AN EMPTY STOMACH WITH FULL GLASS OF WATER. DO NOT LIE DOWN FOR 1 HOUR simvastatin 40 mg tablet 40 mg PO DAILY gabapentin 300 mg capsule 300 mg PO Q12H zinc 15 mg tablet 15 mg PO DAILY cholecalciferol (vitamin D3) 25 mcg (1,000 unit) capsule 1,000 unit PO DAILY cyclobenzaprine 10 mg tablet 10 mg PO Q8H PRN Follow Up/Referrals: Clare Marin DO [Primary Care Provider] - Stand Alone Forms: [facility] Info Instructions
[2023-06-24 14:18] LABS: Chloride* 106 mmol/L (96-114); Potassium* 4.1 mmol/L (3.6-5.1); Sodium* 142 mmol/L (135-149)
[2023-06-24 14:21] LABS: Creatinine* 0.8 mg/dL (0.5-1.5); Est. Creatinine Clearance* 32.86; Estimated Glomerular Filt Rate 74 ml/min
[2023-06-24 14:22] LABS: Anion Gap 9 mEq/L (7-15); Blood Urea Nitrogen* 20 mg/dL (7-30); Calcium* 9.5 mg/dL (8.4-10.6); Carbon Dioxide* 27 mmol/L (20-32); Glucose* 88 mg/dL (60-115)
[2023-06-24 14:25] LABS: C Reactive Protein* 0.9 mg/dL (0.5-1.0)
[2023-06-24 14:30] LABS: Basophils Absolute Auto 0.03 K/uL (0.00-0.30); Basophils Percent Auto 0.4 % (0.0-3.0); Eosinophils Absolute Auto 0.14 K/uL (0.00-0.50); Hematocrit 44.6 % (33.0-51.0); Hemoglobin* 14.6 gm/dL (12.0-16.0); Immature Granulocytes Abs Auto 0.01 K/uL (0.00-0.30); Immature Granulocytes Pct Auto 0.1 %; Lymphocytes Absolute Auto 1.55 K/uL (0.90-2.90); Lymphocytes Percent Auto 22.4 % (20-44); Mean Corpuscular HGB Conc 33 gm/dL (32-36); Mean Corpuscular Hemoglobin 30 pg (26-34); Mean Corpuscular Volume 90 fL (80-100); Monocytes Percent Auto 8.2 % (0.0-11.0); Neutrophils Absolute Auto 4.61 K/uL (1.7-7.0); Neutrophils Percent Auto 66.9 % (42.0-72.0); Platelet Count* 205 K/uL (140-440); RDW Coefficient of Variation % 14.5 % (11.5-15.5); Red Blood Count 4.94 m/uL (4.00-5.20); White Blood Count* 6.91 K/uL (4.50-11.00)
[2023-06-24 14:37] LABS: Slide Review Reflex No
[2023-06-24 14:57] LABS: Appearance Urine Clear (Clear); Bilirubin Urine Negative (Negative); Blood Urine Negative (Negative); Color Urine Yellow (Yellow); Glucose Urine Negative (Negative); Ketones Urine Trace (Negative); Leukocyte Esterase Urine Negative (Negative); Nitrite Urine Negative (Negative); Protein Urine Negative (Negative); Specific Gravity Urine 1.025 (1.000-1.030); Urobilinogen Urine 0.2 (0.2-1.0)
[2023-06-24 15:15] LABS: Amorphous Sediment Urine Few; RBC Urine 0-2 (0-2); Squamous Epithelial Cell Urine Few (None-Few); WBC Urine 0-2 (0-5)
== END 2023-06-24 15:30 | disposition home or self-care (01) ==
PROVIDERS: Emergency Provider Emergency Medicine; PCP Family Medicine
DX: R10.9 Unspecified abdominal pain (principal)
CPT/HCPCS: 36415; 74176; 80048; 81001; 85025; 86140; 99284

== ENCOUNTER 2023-07-04 09:39 | Outpatient (CLI) | payer MEDICARE, OTHER, SELFPAY ==
--- OUTSIDE RECORDS SUMMARY | 2023-07-04 09:41 | XMS_ITS | Clinical Summary ---
Author Organization [facility] Address [place], [place] [address] Care Team Providers Care University Teacher Name Role Phone Clare Marin DO Primary Care Provider Allergies Active Allergy Reactions Criticality Noted Date [...] 05/25/2009 Active cholecalciferol (VITAMIN D) 1,000 unit capsuleIndications:Vi tamin D deficiency Take 2 capsules by mouth once daily. 0 12/23/2012 Active cyclobenzaprine (FLEXERIL) 10 mg tabletIndications:DDD (degenerative disc disease), lumbar Take 1 Tablet (10 mg) by mouth every 8 hours if needed for Muscle Spasm. 30 Tablet 05/06/2022 Active simvastatin (ZOCOR) 40 mg tabletIndications:Mix ed hyperlipidemia Take 1 Tablet (40 mg) by mouth at bedtime. 90 Tablet 3 06/05/2022 Active alendronate (FOSAMAX) 70 mg tabletIndications:Ost eopenia, unspecified location Take 1 Tablet (70 mg) by mouth once a week in the morning. Take on empty stomach with full glass of water. Do not lie down for 1 hr. 13 Tablet 2 01/02/2023 Active gabapentin (NEURONTIN) 300 mg capsuleIndications:He reditary and idiopathic peripheral neuropathy TAKE 1 CAPSULE(300 MG) BY MOUTH TWICE DAILY 180 Capsule 05/18/2023 Active Active Problems Problem Noted Date Diagnosed Date [...] Encounters Date Type Department Care Team Description 06/30/[address] [address] Yessenia Cross MD Refill Request (Cyclobenzaprine) 06/10/[address] [address] Terrell Salguero MD Error-please disregard 06/09/2023 Telephone [facility] [address] [place] [address] Terrell Salguero MD Appointment Request (Back pain) 05/26/2023 2:10 PM CDT Office Visit [address] [address] Clare Marin, DO Syncope (Pt reports fainting Friday morning 05/23 - felt woozy prior to this happening, did hit head but reports not losing consciousness - no headaches or vision changes. Was checked out by EMS, vitals were stable ) 05/26/2023 Travel 05/26/[address] [place] [address] Clare Marin Tasha, DO Dizziness 05/23/2023 3:00 PM CDT Office Visit [facility] [address] [facility] [address] Tania Clare Tasha, DO Leg Pain/problem (Lump on L navarro from metal puncture, x2 months); Derm Problem (Spot on tip of nose x3 years would like looked at); Ear Problem (Look in ears - see if they need to be cleaned out) 05/23/2023 Travel 05/17/2023 Refill [facility] [address] [place] [address] Nga Sanchez MD Refill Request (Gabapentin) from Last 3 Months Immunizations Name Administration Dates Next Due COVID-19 vaccine (Moderna 100mcg/0.5mL) PF, MDV 05/09/2021,12/06/2020,04/28/2020,2020 COVID-19 vaccine (ConspireBio NTech 30mcg/0.3mL) 12YO+ BIVALENT PF, MDV 11/21/2021 [...] Description 07/04/2023 10:40 AM CDT Office Visit [facility] [address] [place] [address] Terrell Salguero MD [address] [place] [address] Arrived 07/17/2023 8:55 AM CDT Office Visit [facility] [address] [place] [address] Clare Marin, DO [address] [place] [address] 08/08/2023 9:20 AM CDT Office Visit [facility] [address] [place] [address] Terrell Salguero MD [address] [place] [address] Health Maintenance Due Date Last Done Comments [...] Procedure Name Priority Date/Time Associated Diagnosis Comments AMB EPIDURAL STEROID INJECTION Routine 07/04/2023 8:05 AM CDT Lumbar radiculopathy Lumbar disc herniation Degenerative scoliosis in adult patient DDD (degenerative disc disease), lumbar XR DXA BONE DENSITY 2 SITES AXIAL [...] recommended in 2 years. Laisha Mehta PA-C [facility] 09/03/2022 Narrative 09/03/2022 2:48 PM CDT For Patients: Results are automatically released to your [facility] ([facility]) account once available, in compliance with federal regulations. This means that you may see your results before your provider has had a chance to review them. Please allow 2-3 business days for your provider to comment on the results. XR DXA Bone Mineral Density (BMD) EXAM LOCATION: [address] [address] PATIENT NAME: Heidi Sarah DATE OF : [...] two scanners are made by the same infectious disease technician. PROCEDURE: Dual-energy x-ray absorptiometry performed with routine [...] Documents on File Type Date Recorded Patient Craps Manager Expl anation Healthcare Directive 03/06/2015 9:15 AM TH E [facility]IVING FAR[place], [place] [address] [facility], 04/18/1983 Care Teams University Teacher Relationship Specialty Start Date End Date Clare [place] [address] [address] [place] [address] PCP - General Family Practice 09/13/22
== END 2023-07-04 09:40 | disposition home or self-care (01) ==
LOC: INJ CL 09:40
PROVIDERS: PCP Family Medicine; Visit Provider Family Medicine
DX: M51.36 Other intervertebral disc degeneration, lumbar region (principal); M54.16 Radiculopathy, lumbar region
CPT/HCPCS: 62323; J0702; Q9966

== ENCOUNTER 2023-07-17 09:42 | Emergency (ER) | payer MEDICARE, OTHER, SELFPAY ==
[2023-07-17 09:49] VITALS: BP 138/84; PULSE 85; RESP 18; TEMP 36.3; O2SAT 95; BMI 19.0
--- NOTE | 2023-07-17 10:09 | CRLHL7_ITS ---
For Patients: As a result of the 21st Century Cures Act, medical imaging exams and procedure reports are released immediately into your electronic medical record. You may view this report before your referring provider. If you have questions, please contact your health care provider. INDICATION: LEFT FLANK AND LUQ PAIN - RADIATES DOWN LEG - LEFT BACK INJ 2 WEEKS AGO TECHNIQUE: CT of the abdomen and pelvis was obtained with 51 mL of Isovue 370 intravenous contrast. Please note that all CT scans at this facility use dose modulation, iterative reconstruction, and/or weight-based dosing when appropriate to reduce radiation dose to as low as reasonably achievable. COMPARISON: 06/24/2023 FINDINGS: Lower thorax: Redemonstration of 2.4 x 1.7 centimeter right lower lobe pulmonary nodule (3/12), previously measuring 2.3 x 1.7 centimeter. Innumerable nodular opacities are seen in the right lower lobe with irregular interlobular septal thickening and confluent perihilar opacities. Liver and biliary tree: Multiple hepatic nodules with the largest measuring 3.4 x 3.4 centimeter (2/34), previously measuring roughly 2.5 x 2.5 centimeter, though absence of intravenous contrast limited evaluation. Overall, size and number of nodules appears to have increased. Gallbladder: Normal. Spleen: Normal. Pancreas: Calcifications are compatible with sequela of chronic pancreatitis. Adrenal glands: Normal. Kidneys and ureters: No hydronephrosis. 8 millimeter nonobstructing left renal calculus (2/34). Subcentimeter hypoattenuating lesions are too small to characterize and are favored to represent cysts. Gastrointestinal tract: Moderate stool burden. Moderate sigmoid colonic diverticulosis without CT evidence of acute diverticulitis. Appendix is not definitively visualized. No evidence of bowel obstruction. Peritoneal cavity: Trace pelvic free fluid. Bladder: Decompressed. Pelvic organs: Normal. Vasculature: Moderate to severe calcification. Prominent left gonadal vein and left pelvic vasculature with severe narrowing of the proximal left renal vein. Lymph nodes: Keegan hepatis lymph node conglomerate measuring 5.4 x 4.3 centimeter (2/46). Abdominal wall: Normal. Musculoskeletal: Moderate multilevel degenerative changes of the visualized spine with moderate rightward curvature of the lumbar spine. Mild degenerative changes of the bilateral hips. IMPRESSION: 1. Redemonstration of 2.4 x 1.7 centimeter right lower lobe pulmonary nodule, previously measuring 2.3 x 1.7 centimeter. Innumerable nodular opacities in the right lower lobe with irregular interlobular septal thickening and confluent perihilar opacities. Findings are concerning for malignancy with local spread of disease. 2. Hepatic nodules measuring up to 3.4 x 3.4 centimeter, previously measuring roughly 2.5 x 2.5 centimeter, though absence of intravenous contrast previously limited evaluation. Overall, size and number of nodules appears to have increased. Findings are concerning for metastatic disease. 3. Keegan hepatis lymph node conglomerate measuring 5.4 x 4.3 centimeter is concerning for metastatic disease. 4. Prominent left gonadal vein and left pelvic vasculature may be due to severe narrowing of the proximal left renal vein from mass effect from adjacent lymph node conglomerate. Please note that all CT scans at this facility use dose modulation, iterative reconstruction, and/or weight-based dosing when appropriate to reduce radiation dose to as low as reasonably achievable. Dictated by Markos Wilhelm MD @ 07/17/2023 11:27:14 AM (Electronically Signed)
--- NOTE | 2023-07-17 10:25 | ED.GENADULT ---
HPI - General Adult General Date Seen: 07/17/23 Chief complaint: Back Injury/Pain Stated complaint: Back pain Time Seen by Provider: 07/17/23 10:48 Source: patient Mode of arrival: ambulatory Limitations: no limitations History of Present Illness HPI narrative: Patient is an 82-year-old female presenting for left-sided flank and left upper quadrant pain radiating down to her left leg. She states this pain started about 2 weeks ago after she had an injection for right-sided back pain. The right-sided back pain has since resolved. She is at this junction multiple times before never had these symptoms in the past. States they started shortly after the injection. He does state she feels like her abdomen is always fall and she can only have a couple crackers before she starts feeling sick. Describes the sensation as feeling like she is about to explode. Has previously taken muscle relaxers in abdomen for the pain with minimal improvement in her symptoms. Denies having symptoms like this before. Was recently seen 3 weeks ago for left flank pain with a normal CT scan. No other concerns noted at this time. Denies fevers, chills, chest pain, weakness, numbness, headache, vision changes. States pain occasionally gets so bad that she feels short of breath. Does state the pain seems to have go way when she lays down flat. Was able to drive herself to the hospital. Related Data Home Medications ?Medication ?Instructions ?Recorded ?Confirmed alendronate 70 mg tablet 70 mg PO .weekly 12/02/21 06/24/23 gabapentin 300 mg capsule 300 mg PO Q12H 12/02/21 06/24/23 simvastatin 40 mg tablet 40 mg PO DAILY 12/02/21 06/24/23 cholecalciferol (vitamin D3) 25 1,000 unit PO DAILY 06/24/23 06/24/23 mcg (1,000 unit) capsule cyclobenzaprine 10 mg tablet 10 mg PO Q8H PRN 06/24/23 06/24/23 zinc 15 mg tablet 15 mg PO DAILY 06/24/23 06/24/23 Previous Rx's ?Medication ?Instructions ?Recorded tramadol 50 mg tablet 50 mg PO QHS #10 tabs 06/24/23 Allergies Allergy/AdvReac Type Severity Reaction Status Date / Time Penicillins Allergy Intermediate Verified 07/17/23 10:25 aspirin [From Percodan] Allergy Verified 07/17/23 10:25 diphenhydramine Allergy Verified 07/17/23 10:25 [From Benadryl] oxycodone Allergy Verified 07/17/23 10:25 Review of Systems Status of ROS: Reports: 10 or more systems reviewed and unremarkable except as noted in History and below [facility] Social History Smoking Status: Current some day smoker What tobacco products do you use: cigarettes Do you use any of these nicotine containing products: None Second hand tobacco smoke exposure: No How often do you have a drink containing alcohol: never How often do you have six or more drinks on one occasion: Never AUDIT-C Alcohol total score: 0 Non-prescribed substance use: denies use service: No Exam Narrative: Exam Narrative: Const: Well-nourished, Well-developed, in mild distress Eyes: PERRL, no conjunctival injection, and symmetrical lids HENT: Atraumatic external nose and ears. Moist mucous membranes. Neck: Symmetric, trachea midline, No thyromegaly. CVS: RRR, No murmurs or gallops. Peripheral pulses 2+ and equal in all extremities RESP: Unlabored respiratory effort. Clear to auscultation bilaterally. GI: Left upper quadrant tenderness, Nondistended, No rebound or guarding. MSK:Extremities w/o deformity, Normal Active ROM Skin: Warm, Dry. No rashes or lesions. Neuro: Normal Muscle tone, No focal neurological deficits. Psych: Awake, Alert, & Oriented x3. Appropriate mood and affect. Const: Vital Signs, click to edit/add: Vital Signs - 24 hr 07/17/23 09:49 Temperature 97.4 F L Pulse Rate [Left P ulse Oximeter] 85 Respiratory Rate 18 Blood Pressure [Le ft Upper Arm] 138/84 Pulse Oximetry 95 Oxygen Delivery Me thod Room Air Course Vital Signs Vital signs: Initial Vital Signs Temperature 97.4 F L 07/17/23 09:49 Temperature Source Temporal Artery Scan 07/17/23 09:49 Pulse Rate 85 07/17/23 09:49 Pulse Rhythm Regular 07/17/23 09:49 Pulse Strength 3+ Normal 07/17/23 09:49 Respiratory Rate 18 07/17/23 09:49 Blood Pressure 138/84 07/17/23 09:49 Blood Pressure Mean 102 07/17/23 09:49 Blood Pressure Position Sitting 07/17/23 09:49 Pulse Oximetry 95 07/17/23 09:49 Oxygen Delivery Method Room Air 07/17/23 09:49 Vital Signs Temperature 97.4 F L 07/17/23 09:49 Pulse Rate 85 07/17/23 09:49 Respiratory Rate 18 07/17/23 09:49 Blood Pressure 138/84 07/17/23 09:49 Pulse Oximetry 95 07/17/23 09:49 Oxygen Delivery Method Room Air 07/17/23 09:49 Temperature 97.4 F L 07/17/23 09:49 Pulse Rate 85 07/17/23 09:49 Respiratory Rate 18 07/17/23 09:49 Blood Pressure 138/84 07/17/23 09:49 Pulse Oximetry 95 07/17/23 09:49 Oxygen Delivery Method Room Air 07/17/23 09:49 Medications Administered Medications: Discontinued Medications Generic Name Dose Route Start Last Admin Trade Name Freq PRN Reason Stop Dose Admin Ketorolac Tromethamine 15 mg 07/17/23 10:08 07/17/23 11:05 Ketorolac 15 Mg/Ml Inj IVP 07/17/23 10:09 15 mg ONCE ONE Administration Medical Decision Making MDM Narrative Medical decision making narrative: Patient is an 82-year-old female presenting to emergency department for left upper quadrant and back pain. Symptoms have Suzi few weeks and she was seen 3 weeks ago for left flank pain with abnormal CT scan. Concerned she is not having the abdominal is I will repeat his CT scans look for any abdominal issues. The flank pain is likely secondary to muscle strain. Will give Toradol for pain. Will also order a CBC, BMP. Patient's lab work returned showing no concerning abnormalities. Her symptoms improved significantly with the Toradol. CT scan was done showing a growing lung nodule, growing hepatic nodule, along with a portal hepatic lymph node lymph that is concerning for metastatic disease. There also is a prominent left gonadal and pelvic brain and vasculature that may be from narrowing caused by mass effect on the renal vein from the lymph node conglomerate. Due to all this I did speak to the office for her primary care provider. Her PCP was not available today but was able to set her up for follow-up appointment tomorrow. I offered the patient pain medication to discharge home with but she declined. Lab Data Labs: Lab Results 07/17/23 Range/Units 10:45 WBC 9.69 (4.50-11.00) K/uL RBC 4.86 (4.00-5.20) m/uL Hgb 14.3 (12.0-16.0) gm/dL Hct 43.5 (33.0-51.0) % MCV 90 (80-100) fL MCH 29 (26-34) pg MCHC 33 (32-36) gm/dL RDW Coeff of Dede 15.3 (11.5-15.5) % Plt Count 224 (140-440) K/uL Neut % (Auto) 81.1 H (42.0-72.0) % Lymph % (Auto) 11.1 L (20-44) % Ripley % (Auto) 6.3 (0.0-11.0) % Eos % (Auto) 1.0 (0.0-7.0) % Baso % (Auto) 0.4 (0.0-3.0) % Neut # (Auto) 7.90 H (1.7-7.0) K/uL Lymph # (Auto) 1.10 (0.90-2.90) K/uL Ripley # (Auto) 0.60 (0.00-0.90) K/UL Eos # (Auto) 0.10 (0.00-0.50) K/uL Baso # (Auto) 0.04 (0.00-0.30) K/uL Abs Immat Gran (auto) 0.01 (0.00-0.30) K/uL Imm/Tot Granulo (auto) 0.1 % Sodium 140 (135-149) mmol/L Potassium 4.3 (3.6-5.1) mmol/L Chloride 107 (96-114) mmol/L Carbon Dioxide 31 (20-32) mmol/L Anion Gap 2 L (7-15) mEq/L BUN 17 (7-30) mg/dL Creatinine 0.9 (0.5-1.5) mg/dL Estimated Creat Clear 32.86 Estimated GFR 64 ml/min Glucose 94 (60-115) mg/dL Calcium 9.6 (8.4-10.6) mg/dL Imaging Data CT scan abdomen pelvis: Attestation: I have reviewed the pertinent imaging results. Radiologist's impression: 1. Redemonstration of 2.4 x 1.7 centimeter right lower lobe pulmonary nodule, previously measuring 2.3 x 1.7 centimeter. Innumerable nodular opacities in the right lower lobe with irregular interlobular septal thickening and confluent perihilar opacities. Findings are concerning for malignancy with local spread of disease. 2. Hepatic nodules measuring up to 3.4 x 3.4 centimeter, previously measuring roughly 2.5 x 2.5 centimeter, though absence of intravenous contrast previously limited evaluation. Overall, size and number of nodules appears to have increased. Findings are concerning for metastatic disease. 3. Keegan hepatis lymph node conglomerate measuring 5.4 x 4.3 centimeter is concerning for metastatic disease. 4. Prominent left gonadal vein and left pelvic vasculature may be due to severe narrowing of the proximal left renal vein from mass effect from adjacent lymph node conglomerate. Please note that all CT scans at this facility use dose modulation, iterative reconstruction, and/or weight-based dosing when appropriate to reduce radiation dose to as low as reasonably achievable. Dictated by Markos Wilhelm MD @ 07/17/2023 11:27:14 AM Discharge Plan Discharge Clinical Impression: Lumbar radiculopathy, Pulmonary nodules, Liver nodule Patient Disposition: Home, Self-Care Condition: Improved Instructions: Back Pain (ED) Additional Instructions: Continue to take your previously prescribed pain medication for your back pain. I spoke to the office for Dr. Marin and was able to get your appointment scheduled for 1125 tomorrow morning at her office. Make sure you go to this appointment as is important you of close follow-up for the multiple growing nodules that is concerning for metastatic cancer. Prescriptions: No Action alendronate 70 mg tablet 70 mg PO .weekly Patient Comments: TAKE 1 TABLET BY MOUTH ONCE A WEEK IN THE MORNING. TAKE ON AN EMPTY STOMACH WITH FULL GLASS OF WATER. DO NOT LIE DOWN FOR 1 HOUR simvastatin 40 mg tablet 40 mg PO DAILY gabapentin 300 mg capsule 300 mg PO Q12H zinc 15 mg tablet 15 mg PO DAILY cholecalciferol (vitamin D3) 25 mcg (1,000 unit) capsule 1,000 unit PO DAILY cyclobenzaprine 10 mg tablet 10 mg PO Q8H PRN tramadol 50 mg tablet 50 mg PO QHS Qty: 10 0RF Follow Up/Referrals: Clare Marin DO [Primary Care Provider] - Stand Alone Forms: [employer] Info Instructions
--- OUTSIDE RECORDS SUMMARY | 2023-07-17 10:25 | XMS_ITS | Clinical Summary ---
Author Organization [facility] Address [place], [place] [address] Care Team Providers Care Generator Switchboard Operator Name Role Phone Clare Marin DO Primary Care Provider [phone] Allergies Active Allergy Reactions Criticality Noted Date [...] Sensorineural hearing loss of both ears 04/22/19 20 Tinnitus 04/22/2019 Osteopenia 05/01/2017 DDD (degenerative disc [...] Encounters Date Type Department Care Team Description 07/14/2023 Telephone [facility] [address] [place] [address] Terrell Salguero MD BACK ISSUES 07/04/2023 10:40 AM CDT Office Visit [facility] at [address] [id number] Terrell Salguero MD Procedure (L4-5 ILESI) 06/30/2023 Refill [facility] [address] [place] [address] Yessenia Cross MD Refill Request (Cyclobenzaprine) 06/10/2023 Telephone [facility] [address] [place] [address] Terrell Salguero MD Error-please disregard 06/09/2023 Telephone [facility] [address] [place] [address] Terrell Salguero MD Appointment Request (Back pain) 05/26/2023 2:10 PM CDT Office Visit [facility] [address] [place] [address] Clare Marin, DO Syncope (Pt reports fainting Friday morning 05/23 - felt woozy prior to this happening, did hit head but reports not losing consciousness - no headaches or vision changes. Was checked out by EMS, vitals were stable ) 05/26/2023 Travel 05/26/2023 Telephone [facility] [address] [place] [address] Clare Marin, DO Dizziness 05/23/2023 3:00 PM CDT Office Visit [facility] [address] [place] [address] Clare Marin, Leg Pain/problem (Lump on L navarro from metal puncture, x2 months); Derm Problem (Spot on tip of nose x3 years would like looked at); Ear Problem (Look in ears - see if they need to be cleaned out) 05/23/2023 Travel 05/17/2023 Refill [facility] [address] [place] [address] Nga Sanchez MD Refill Request (Gabapentin) from Last 3 Months Immunizations Name Administration Dates Next Due COVID-19 vaccine (Moderna 100mcg/0.5mL) PF, MDV 05/09/2021,12/06/2020,04/28/2020,2020 COVID-19 vaccine (Pfizer-Bio NTech 30mcg/0.3mL) 12YO+ BIVALENT PF, MDV 11/21/2021 [...] Care Team (Late st Contact Info) Description 08/04/2023 12:30 PM CDT Ancillary Procedure [facility] [address] [place] [address] 08/08/2023 9:20 AM CDT Office Visit [facility] [address] [place] [address] Terrell Salguero MD [address] [place] [address] 08/08/2023 12:55 PM CDT Office Visit [facility] [address] [place] [address] Clare Marin DO [address] [place] [address] Health Maintenance Due Date Last Done Comments [...] Comments AMB EPIDURAL STEROID INJECTION Routine 07/04/2023 12:00 AM CDT Lumbar radiculopathy Lumbar disc herniation Degenerative scoliosis in adult patient DDD (degenerative disc disease), lumbar XR DXA BONE DENSITY 2 SITES AXIAL Routine 08/29/2022 10:32 AM CDT Osteopenia, unspecified location Other specified disorders of bone density and structure, other site from Last 3 Months or Most Recently Relevant to Health Maintenance Results * AMB EPIDURAL STEROID INJECTION (07/04/2023 12:00 AM CDT) Terrell Salguero MD NEUROLOGY ORD * (ABNORMAL) XR DXA BONE DENSITY 2 [...] recommended in 2 years. Laisha Mehta PA-C [facility] 09/03/2022 Narrative 09/03/2022 2:48 PM CDT For Patients: Results are automatically released to your [facility] ([employer]) account once available, in compliance with federal regulations. This means that you may see your results before your provider has had a chance to review them. Please allow 2-3 business days for your provider to comment on the results. XR DXA Bone Mineral Density (BMD) EXAM LOCATION: [address] [address] PATIENT NAME: Heidi Sarah DATE OF : [...] two scanners are made by the same parts counterman. PROCEDURE: Dual-energy x-ray absorptiometry performed with routine [...] Documents on File Type Date Recorded Patient Machine Iii Coremaker Expl anation Healthcare Directive 03/06/2015 9:15 AM [facility]IV[facility] WILL, TERRIE ARIELLA, 04/18/1983 Care Teams Generator Switchboard Operator Relationship Specialty Start Date End Date Clare Marin DO [address] [place] [address] PCP - General Family Practice 09/13/22
[2023-07-17 10:52] LABS: Basophils Absolute Auto 0.04 K/uL (0.00-0.30); Basophils Percent Auto 0.4 % (0.0-3.0); Hematocrit 43.5 % (33.0-51.0); Hemoglobin* 14.3 gm/dL (12.0-16.0); Immature Granulocytes Abs Auto 0.01 K/uL (0.00-0.30); Immature Granulocytes Pct Auto 0.1 %; Lymphocytes Percent Auto 11.1 % (20-44); Mean Corpuscular HGB Conc 33 gm/dL (32-36); Mean Corpuscular Hemoglobin 29 pg (26-34); Mean Corpuscular Volume 90 fL (80-100); Monocytes Percent Auto 6.3 % (0.0-11.0); Neutrophils Percent Auto 81.1 % (42.0-72.0); Platelet Count* 224 K/uL (140-440); RDW Coefficient of Variation % 15.3 % (11.5-15.5); Red Blood Count 4.86 m/uL (4.00-5.20); White Blood Count* 9.69 K/uL (4.50-11.00)
[2023-07-17 10:54] LABS: Slide Review Reflex No
[2023-07-17 11:01] LABS: Chloride* 107 mmol/L (96-114)
[2023-07-17 11:02] LABS: Potassium* 4.3 mmol/L (3.6-5.1); Sodium* 140 mmol/L (135-149)
[2023-07-17 11:05] LABS: Anion Gap 2 mEq/L (7-15); Blood Urea Nitrogen* 17 mg/dL (7-30); Calcium* 9.6 mg/dL (8.4-10.6); Carbon Dioxide* 31 mmol/L (20-32); Creatinine* 0.9 mg/dL (0.5-1.5); Est. Creatinine Clearance* 32.86; Estimated Glomerular Filt Rate 64 ml/min; Glucose* 94 mg/dL (60-115)
[2023-07-17] MEDS: KETOROLAC 15 MG/ML inj IVP (11:05)
--- NOTE | 2023-07-17 11:05 | ED.NURSE ---
Patient sitting on cot, pain-free. Pain comes when she is standing/ambulating. She denies needs at present.
[2023-07-17 12:30] VITALS: BP 138/84; BP 148/92; PULSE 76; PULSE 85; RESP 14; TEMP 36.3; O2SAT 97
== END 2023-07-17 12:30 | disposition home or self-care (01) ==
PROVIDERS: Emergency Provider Student in an Organized Health Care Education/Training Program; PCP Family Medicine
DX: M54.16 Radiculopathy, lumbar region (principal); R91.1 Solitary pulmonary nodule; R16.0 Hepatomegaly, not elsewhere classified
CPT/HCPCS: 36415; 74177; 80048; 85025; 96374; 99283; 99284; 99285; J1885; Q9967

== ENCOUNTER 2023-07-20 09:41 | Emergency (ER) | payer MEDICARE, OTHER, SELFPAY ==
[2023-07-20 09:49] VITALS: BP 120/84; PULSE 89; RESP 18; TEMP 36.6; O2SAT 96; BMI 17.3
--- NOTE | 2023-07-20 10:09 | ED_ITS ---
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 Patient notes that she has had intermittent low back pain for approximately a year and more recently right leg pain. She received an injection 2 weeks ago and this very much helped her right leg pain but now she has left leg pain since that time. She describes this as radiating to the knee but not beyond. It is pain and not any numbness or tingling. The pain is worse when she is moving and when she is upright. When she is lying down and still it improves. She has been using Flexeril and 3 Advil tablets in the morning and this seems to have helped. She was seen recently for this very discomfort and at that time it was noted that she had suspected lung cancer with metastases to liver. She has been scheduled for MRI and PET scan at [place] on August 03. She notes that the pain is been sign ificant although yesterday she declined any pain medicines to go home with. She has had 1 month of increasing fatigue especially over the last 3 weeks with decreased appetite. She notes that she can eat she is just not hungry. She notes that her back is ?very messed up?. She notes that she has not had any surgeries but does have scoliosis and significant degenerative disease. She has been stooling without difficulty she notes for approximately 1 year and has been hard to urinate. She states that it is hard to initiate urination and that she has to lean forward while sitting on the toilet to do so. However, once she starts she is able to empty her bladder. No dysuria or hematuria. No numbness of the perennial area. No fever or chills. Has experienced approximately 20 lb weight loss over the past year. Upon further discussion patient notes that the pain does radiate upward and somewhat into her left lower abdomen. Related Data Home Medications ?Medication ?Instructions ?Recorded ?Confirmed alendronate 70 mg tablet 70 mg PO .weekly 12/02/21 06/24/23 gabapentin 300 mg capsule 300 mg PO Q12H 12/02/21 06/24/23 simvastatin 40 mg tablet 40 mg PO DAILY 12/02/21 06/24/23 cholecalciferol (vitamin D3) 25 1,000 unit PO DAILY 06/24/23 06/24/23 mcg (1,000 unit) capsule cyclobenzaprine 10 mg tablet 10 mg PO Q8H PRN 06/24/23 06/24/23 zinc 15 mg tablet 15 mg PO DAILY 06/24/23 06/24/23 Previous Rx's ?Medication ?Instructions ?Recorded tramadol 50 mg tablet 50 mg PO QHS #10 tabs 06/24/23 ondansetron 4 mg disintegrating 4 mg PO DAILY #20 tabs 07/20/23 tablet oxycodone 5 mg tablet 5 mg PO Q4-6H PRN pain #7 tabs 07/20/23 Allergies Allergy/AdvReac Type Severity Reaction Status Date / Time Penicillins Allergy Intermediate Verified 07/17/23 10:25 aspirin [From Percodan] Allergy Verified 07/17/23 10:25 diphenhydramine Allergy Verified 07/17/23 10:25 [From Benadryl] oxycodone Allergy Verified 07/17/23 10:25 Review of Systems Status of ROS: Reports: 10 or more systems reviewed and unremarkable except as noted in History and below Const: Reports: fatigue; Denies: fever Eyes: Denies: change in vision ENMT: Denies: throat pain or neck pain Cardio: Denies: chest pain or shortness of breath with exertion Resp: Denies: shortness of breath or cough GI: Reports: abdominal pain Musculo: Denies: neck pain Neuro: Denies: headache Endo: Reports: fatigue PFSH PFSH Social History Smoking Status: Current some day smoker What tobacco products do you use: cigarettes Do you use any of these nicotine containing products: None Second hand tobacco smoke exposure: No How often do you have a drink containing alcohol: never How often do you have six or more drinks on one occasion: Never AUDIT-C Alcohol total score: 0 Non-prescribed substance use: denies use service: No Exam Narrative: Exam Narrative: Andersen is alert and oriented. She is very thin in appearance. Mentation is normal. EOM is full. Neck is supple. Heart with regular rate and rhythm and lungs are clear bilaterally. Abdomen is soft. No pain is palpated. Palpation of the thoracic and lumbar spine shows discomfort at the VA very lower SI junction. She has minimal body fat and thus spine is clearly visualize with kyphosis as well as some scoliosis. Lower extremities with full motor and strength with the exception of some decreased strength in left hip flexion. DTRs are 1+ at the knees. Const: Vital Signs, click to edit/add: Vital Signs - 24 hr 07/20/23 09:49 Temperature 97.9 F Pulse Rate [Pulse Oximeter] 89 Respiratory Rate 18 Blood Pressure [Ri ght Upper Arm] 120/84 Pulse Oximetry 96 Oxygen Delivery Me thod Room Air Documenting provider has reviewed patient's vital signs: yes Course Course ED Course: Reviewing patient's notes she had did have a CT of the chest abdomen pelvis on the 16 of July at which time there is a lung nodule that has increased in size slightly, nodules in the liver the have greatly increased in size that are suspicious for metastatic disease. There was also some left-sided. Prominent left gonadal vein and left pelvic vasculature may be due to severe narrowing of the proximal left renal vein from mass effect from adjacent lymph node conglomerate. At this time will place IV check CBC, comprehensive panel, urinalysis. Plan on MRI with and without contrast of the lumbar spine to look for metastatic disease verses L5/S1 nerve compromise from disc or bony overgrowth. Patient declines IV pain medication at this time but is willing to use Flexeril and ibuprofen. Will give her 5 mg of Flexeril given her size. She has been taking 600 mg of ibuprofen at home which is actually too much for her given that she is only 47 kg. Will await creatinine and give her 400 mg of p.o. ibuprofen. Pending normal creatinine. Reevaluation(s) Reevaluation #1: Patient noted to be feeling better after ibuprofen. Vital Signs Vital signs: Initial Vital Signs Temperature 97.9 F 07/20/23 09:49 Temperature Source Temporal Artery Scan 07/20/23 09:49 Pulse Rate 89 07/20/23 09:49 Respiratory Rate 18 07/20/23 09:49 Blood Pressure 120/84 07/20/23 09:49 Blood Pressure Mean 96 07/20/23 09:49 Blood Pressure Position Supine 07/20/23 09:49 Pulse Oximetry 96 07/20/23 09:49 Oxygen Delivery Method Room Air 07/20/23 09:49 Vital Signs Temperature 97.9 F 07/20/23 09:49 Pulse Rate 89 07/20/23 09:49 Respiratory Rate 18 07/20/23 09:49 Blood Pressure 120/84 07/20/23 09:49 Pulse Oximetry 96 07/20/23 09:49 Oxygen Delivery Method Room Air 07/20/23 09:49 Temperature 97.9 F 07/20/23 09:49 Pulse Rate 89 07/20/23 09:49 Respiratory Rate 18 07/20/23 09:49 Blood Pressure 120/84 07/20/23 09:49 Pulse Oximetry 96 07/20/23 09:49 Oxygen Delivery Method Room Air 07/20/23 09:49 Medications Administered Medications: Discontinued Medications Generic Name Dose Route Start Last Admin Trade Name Padillaq PRN Reason Stop Dose Admin Cyclobenzaprine HCl 5 mg 07/20/23 10:44 07/20/23 11:18 Cyclobenzaprine Hcl 10 Mg Tablet PO 07/20/23 10:45 5 mg ONCE ONE Administration Ibuprofen 400 mg 07/20/23 11:10 07/20/23 11:18 Ibuprofen 400 Mg Tablet PO 07/20/23 11:11 400 mg ONCE ONE Administration Medical Decision Making [facility] Narrative Medical decision making narrative: 1. Left leg pain-this appears to be radiating from low back. Unfortunately MRI of the spine and pelvis does show metastatic disease to the sacral I will a as well as iliac crest bilaterally. 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 At this time do suggest pain medication. [place] states that the ibuprofen works very well for her. I would recommend that she only take 2 tablets or 400 mg a she is only 47 kilos. She may do this every 8 hours as needed for discomfort. She may also use the Flexeril as needed. However, I have given her a prescription for oxycod one to be used as needed. The prescription would be 1/2 to 1 tab every 4-6 hours as needed for pain 10. With no refills. Because this may cause her nausea have given her Zofran 4 mg ODT to be used q.8 hours p.r.n. 10. With no refills. If she initiates the oxycodone would recommend stool softener. 2. Metastatic cancer-lung likely primary. Evidence of metastases to liver as well as bone. Patient has follow-up with PET scan and oncology on August 03. Elevated liver function test today with AST of 173 ALT 110 and alk-phos 174. Bilirubin is normal at this time. 3. Disposition-patient will be discharged home at this time. I have asked her to use a walker at home for safety. I have also asked her to consider moving bedroom to the ground floor so that she can avoid using stay the stairwell. Her granddaughter emboli is with her here today. Africa has not told the rest of the family in regards to this diagnosis but Dalia is aware of current medical situation. Return to the emergency room as needed. Medical Records Medical records reviewed: Yes I reviewed the patient's medical records Lab Data Lab results reviewed: Yes I reviewed the patient's lab results Labs: Lab Results 07/20/23 07/20/23 Range/Units 11:00 12:30 WBC 7.49 (4.50-11.00) K/uL RBC 4.66 (4.00-5.20) m/uL Hgb 13.6 (12.0-16.0) gm/dL Hct 42.1 (33.0-51.0) % MCV 90 (80-100) fL MCH 29 (26-34) pg MCHC 32 (32-36) gm/dL RDW Coeff of Dede 15.5 (11.5-15.5) % Plt Count 199 (140-440) K/uL Neut % (Auto) 78.1 H (42.0-72.0) % Lymph % (Auto) 11.5 L (20-44) % [place] % (Auto) 8.0 (0.0-11.0) % Eos % (Auto) 1.6 (0.0-7.0) % Baso % (Auto) 0.5 (0.0-3.0) % Neut # (Auto) 5.80 (1.7-7.0) K/uL Lymph # (Auto) 0.90 (0.90-2.90) K/uL [place] # (Auto) 0.60 (0.00-0.90) K/UL Eos # (Auto) 0.12 (0.00-0.50) K/uL Baso # (Auto) 0.04 (0.00-0.30) K/uL Abs Immat Gran (auto) 0.02 (0.00-0.30) K/uL Imm/Tot Granulo (auto) 0.3 % Sodium 138 (135-149) mmol/L Potassium 4.2 (3.6-5.1) mmol/L Chloride 109 (96-114) mmol/L Carbon Dioxide 28 (20-32) mmol/L Anion Gap 1 L (7-15) mEq/L BUN 20 (7-30) mg/dL Creatinine 0.8 (0.5-1.5) mg/dL Estimated Creat Clear 32.86 Estimated GFR 74 ml/min Glucose 96 (60-115) mg/dL Calcium 9.0 (8.4-10.6) mg/dL Total Bilirubin 0.9 (0.1-1.5) mg/dL AST 173 H (12-35) U/L ALT 110 H (4-35) U/L Alkaline Phosphatase 174 H (40-150) U/L Total Protein 6.8 (6.0-8.3) g/dL Albumin 4.0 (3.3-5.0) g/dL Urine Color Dark yellow (Yellow) Urine Appearance Clear (Clear) Urine pH 6.0 (5.0-8.5) Ur Specific [place] 1.025 (1.000-1.030) Urine Protein 1+ A (Negative) Urine Glucose (UA) Negative (Negative) Urine Ketones Negative (Negative) Urine Blood Negative (Negative) Urine Nitrite Negative (Negative) Urine Bilirubin 1+ A (Negative) Urine Urobilinogen 0.2 (0.2-1.0) Ur Leukocyte Esterase Trace A (Negative) Urine RBC 0-2 (0-2) Urine WBC 2-5 (0-5) Ur Squamous Epith Cells Few (None-Few) Urine Bacteria Few A (None) POC Creatinine 1.0 (0.6-1.3) mg/dl Imaging Data Lumbar MRI: Attestation: I have reviewed the pertinent imaging results. Radiologist's impression: Lumbar scoliosis. Normal there are multiple regions of signal abnormality within the liver that are worrisome for underlying neoplastic process. Mildly enhancing lesions within the lateral aspect of the sacral ala and iliac crests bilaterally that appear worrisome for possible metastatic lesions. Remainder of the lumbar spine demonstrates normal overall stature and alignment. Conus appears within normal limits. T12-L1: Mild disc osteophyte complex results in mild bilateral foraminal and central canal narrowing. L1-2: Leftward eccentric disk bulge and endplate osteophyte results in moderate left and no right foraminal narrowing. Moderate left lateral recess narrowing with mild to moderate central canal narrowing. L2-3: Leftward eccentric disk bulge and endplate osteophyte results in moderate to severe left foraminal narrowing with compression of the exiting left L2 nerve root. Severe left lateral recess narrowing with likely compression of the traversing left L3 nerve root. Moderate central canal narrowing with no right foraminal narrowing. L3-4: Leftward eccentric disc bulge results in mild left and no right foraminal narrowing. Mild central canal and lateral recess narrowing. L4-5: Rightward eccentric disc bulge, endplate osteophyte and asymmetric facet arthropathy results in severe right foraminal compression of the exiting right L4 nerve root. Severe right lateral recess narrowing with compression of the traversing right L5 nerve root. Mild to moderate left foraminal narrowing with mild to moderate central canal narrowing. L5-S1: No well-defined nerve roots are seen centrally. Many of the nerve roots appear peripherally located suggestive of underlying arachnoiditis. Endplate osteophyte formation and facet arthropathy results in mild bilateral foraminal narrowing with no central canal narrowing. IMPRESSION: 1. Lumbar spine with evidence of multiple lesions within the liver and edmund aortic, pericaval lymph nodes likely representing neoplastic involvement. 2. Mildly enhancing lesions within the lateral aspect of the sacral ala and iliac crests bilaterally that appear worrisome for possible metastatic lesions. 3. Findings appearing most suggestive of arachnoiditis at the L5-S1 level. 4. Advanced left lateral recess and foraminal narrowing at L2-3 and L3-4. 5. Severe right foraminal and lateral recess narrowing at L4-5. 6. Advanced multilevel degenerative changes of the lumbar spine as outlined above. Discharge Plan Discharge Clinical Impression: Lumbar radiculopathy, Metastatic cancer Patient Disposition: Home, Self-Care Condition: Improved Additional Instructions: 1. Recommend follow-up as scheduled on August 03. A copy of the MRI is available to you on disc. 2. I would decreased ibuprofen dosing to 2 tablets or 400 mg every 8 hours as needed. I will send a prescription for oxycodone to be used as needed for pain not relieved by ibuprofen. A prescription for Zofran which is an anti nausea medication also accompanies the oxycodone as oxycodone can cause nausea. I wo uld also recommend initiation of a stool softener to prevent constipation. 3. Recommend moving bedroom to the 1st floor and use of a walker in the event that the leg becomes weaker. Return to the emergency room as needed. Prescriptions: New ondansetron 4 mg tablet,disintegrating 4 mg PO DAILY Qty: 20 0RF oxycodone 5 mg tablet 5 mg PO Q4-6H PRN (Reason: pain) Qty: 7 0RF Rx Instructions: May take 1/2-1 tab every 4-6 hours as needed for discomfort not relieved by ibuprofen. No Action alendronate 70 mg tablet 70 mg PO .weekly Patient Comments: TAKE 1 TABLET BY MOUTH ONCE A WEEK IN THE MORNING. TAKE ON AN EMPTY STOMACH WITH FULL GLASS OF WATER. DO NOT LIE DOWN FOR 1 HOUR simvastatin 40 mg tablet 40 mg PO DAILY gabapentin 300 mg capsule 300 mg PO Q12H zinc 15 mg tablet 15 mg PO DAILY cholecalciferol (vitamin D3) 25 mcg (1,000 unit) capsule 1,000 unit PO DAILY cyclobenzaprine 10 mg tablet 10 mg PO Q8H PRN tramadol 50 mg tablet 50 mg PO QHS Qty: 10 0RF Follow Up/Referrals: Clare Marin DO [Primary Care Provider] - Stand Alone Forms: [facility] Info Instructions
--- NOTE | 2023-07-20 10:38 | CRLHL7_ITS ---
For Patients: As a result of the Century Cures Act, medical imaging exams and procedure reports are released immediately into your electronic medical record. You may view this report before your referring provider. If you have questions, please contact your health care provider. INDICATION: Low back and left leg pain. TECHNIQUE: Noncontrast MRI of the lumbar spine is performed in the usual fashion. Supplemental postcontrast T1 weighted sequences are provided. 10 cc of dotarem gadolinium was administered intravenously. No comparisons. FINDINGS: Lumbar scoliosis. Normal there are multiple regions of signal abnormality within the liver that are worrisome for underlying neoplastic process. Mildly enhancing lesions within the lateral aspect of the sacral ala and iliac crests bilaterally that appear worrisome for possible metastatic lesions. Remainder of the lumbar spine demonstrates normal overall stature and alignment. Conus appears within normal limits. T12-L1: Mild disc osteophyte complex results in mild bilateral foraminal and central canal narrowing. L1-2: Leftward eccentric disk bulge and endplate osteophyte results in moderate left and no right foraminal narrowing. Moderate left lateral recess narrowing with mild to moderate central canal narrowing. L2-3: Leftward eccentric disk bulge and endplate osteophyte results in moderate to severe left foraminal narrowing with compression of the exiting left L2 nerve root. Severe left lateral recess narrowing with likely compression of the traversing left L3 nerve root. Moderate central canal narrowing with no right foraminal narrowing. L3-4: Leftward eccentric disc bulge results in mild left and no right foraminal narrowing. Mild central canal and lateral recess narrowing. L4-5: Rightward eccentric disc bulge, endplate osteophyte and asymmetric facet arthropathy results in severe right foraminal compression of the exiting right L4 nerve root. Severe right lateral recess narrowing with compression of the traversing right L5 nerve root. Mild to moderate left foraminal narrowing with mild to moderate central canal narrowing. L5-S1: No well-defined nerve roots are seen centrally. Many of the nerve roots appear peripherally located suggestive of underlying arachnoiditis. Endplate osteophyte formation and facet arthropathy results in mild bilateral foraminal narrowing with no central canal narrowing. IMPRESSION: 1. Lumbar spine with evidence of multiple lesions within the liver and edmund aortic, pericaval lymph nodes likely representing neoplastic involvement. 2. Mildly enhancing lesions within the lateral aspect of the sacral ala and iliac crests bilaterally that appear worrisome for possible metastatic lesions. 3. Findings appearing most suggestive of arachnoiditis at the L5-S1 level. 4. Advanced left lateral recess and foraminal narrowing at L2-3 and L3-4. 5. Severe right foraminal and lateral recess narrowing at L4-5. 6. Advanced multilevel degenerative changes of the lumbar spine as outlined above. Dictated by Elmer Maldonado MD @ 07/20/2023 12:21:24 PM (Electronically Signed)
--- OUTSIDE RECORDS SUMMARY | 2023-07-20 10:40 | XMS_ITS | Clinical Summary ---
Author Organization [facility] Address [place], [place] [address] Care Team Providers Care Leasing Agent Name Role Phone Clare Marin DO Primary Care Provider [phone] Allergies Active Allergy Reactions Criticality Noted Date [...] MOUTH TWICE DAILY 180 Capsule 05/18/2023 Active traMADoL (ULTRAM) 50 mg tablet Take 50 mg by mouth at bedtime. 06/24/2023 Active lidocaine 5 % topical patchIndications:Acut e back pain with sciatica, unspecified laterality Apply on dry, clean, hairless skin. Apply 1 patch to painful area of skin for up to to 12 hours within 24 hour period. 30 Patch 11 07/18/2023 Active Hospital, Clinic, or Other Facility Administered Medication Ordered Dose Route Frequency Start Date End Date Status ketorolac 15 mg injection (TORADOL)Indications:Acute back pain with sciatica, unspecified laterality 15 mg IM ONE TIME 07/18/2023 07/18/2023 En ded Active Problems Problem Noted Date Diagnosed Date [...] Encounters Date Type Department Care Team Description 07/19/2023 Telephone [facility] [address] [place] [address] Clare Marin, DO Questions (Different location) 07/18/2023 11:25 AM CDT Office Visit [facility] [address] [place] [address] Clare Marin, DO ER Follow up (Back pain, radiation down L leg, worse after receiving steroid injection/CT scan shows possible metastatic disease) 07/18/2023 Travel 07/14/2023 Telephone [facility] [address] [place] [address] Terrell Salguero MD BACK ISSUES 07/04/2023 10:40 AM CDT Office Visit [facility] at [facility] [address] [place] [id number] Terrell Salguero MD Procedure (L4-5 ILESI) 06/30/2023 Refill [facility] [address] [place] [address] Yessenia Cross MD Refill Request (Cyclobenzaprine) 06/10/2023 Telephone [facility] [address] [place] [address] Terrell Salguero MD Error-please disregard 06/09/2023 Telephone [facility] [address] [place] [address] Terrell Salguero MD Appointment Request (Back pain) 05/26/2023 2:10 PM CDT Office Visit [facility] [address] [place] [address] Sir Marini Tasha, DO Syncope (Pt reports fainting Friday morning 05/23 - felt woozy prior to this happening, did hit head but reports not losing consciousness - no headaches or vision changes. Was checked out by EMS, vitals were stable ) 05/26/2023 Travel 05/26/2023 Telephone [facility] [address] [place] [address] Tania Clare Tasha, DO Dizziness 05/23/2023 3:00 PM CDT Office Visit [facility] [address] [place] [address] Tania Clare Tasha, DO Leg Pain/problem (Lump on L navarro from metal puncture, x2 months); Derm Problem (Spot on tip of nose x3 years would like looked at); Ear Problem (Look in ears - see if they need to be cleaned out) 05/23/2023 Travel 05/17/2023 Refill [facility] [address] [place] [address] Nga Sanchez MD Refill Request (Gabapentin) from [...] Outcome GA Total Labor Labor/2nd/3rd Weight Sex Type Anes PTL Tasha A1 A5 Name Clin Para Para Para Last Filed Vital Signs Vital Sign Reading Time Taken Comments Blood Pressure 135/68 07/18/2023 11:04 AM CDT Pulse 75 07/18/2023 11:04 AM CDT Temperature 36.9 ??C (98.4 ??F) 07/16/2022 3:50 PM CD T Respiratory Rate 16 07/16/2022 3:50 PM CDT Oxygen Saturation 96% 07/18/2023 11:04 AM CDT Inhaled Oxygen Concentration - - Weight 47.7 kg (105 lb 3.2 oz) 05/23/2023 2:10 P M CDT Height 157.5 cm (5' 2) 07/16/2022 3:50 PM CDT Body Mass Index 19.24 07/16/2022 3:50 PM CDT Plan of Treatment Upcoming Encounters Date Type Department Care Team (Late st Contact Info) Description 07/30/2023 12:00 PM CDT Appointment [facility] [address] [place] [address] 08/04/2023 12:30 PM CDT Ancillary Procedure [facility] [address] [place] [address] 08/08/2023 9:20 AM CDT Office Visit [facility] [address] [place] [address] Terrell Salguero MD [address] [place] [address] 08/08/2023 12:55 PM CDT Office Visit [facility] [address] [place] [address] Clare Marin DO [address] [place] [address] Health Maintenance Due Date Last Done Comments COVID-19 vaccine series ( season) 2023 11/08/2022, 11/21/2021, 05/09/2021, Additional history exists Depression screening for age 12+ 06/06/2023 06/05/2022, [...] Completed 2022, 06/14/2020, 06/05/2017, Additional history exists Procedures Procedure Name Priority [...] recommended in 2 years. Laisha Mehta PA-C [facility] 09/03/2022 Narrative 09/03/2022 2:48 PM CDT For Patients: Results are automatically released to your [email or web address]) account once available, in compliance with federal regulations. This means that you may see your results before your provider has had a chance to review them. Please allow 2-3 business days for your provider to comment on the results. XR DXA Bone Mineral Density (BMD) EXAM LOCATION: [address] [address] PATIENT NAME: Heidi Sarah DATE OF : [...] two scanners are made by the same health and fitness professor. PROCEDURE: Dual-energy x-ray absorptiometry performed with routine [...] Documents on File Type Date Recorded Patient [place] [employer] Machine Operator Expl anation Healthcare Directive 03/06/2015 9:15 AM [facility], [facility], 04/18/1983 Care Teams Leasing Agent Relationship Specialty Start Date End Date Clare [place] [address] [address] PCP - General Family Practice 09/13/22
[2023-07-20 11:16] LABS: Basophils Absolute Auto 0.04 K/uL (0.00-0.30); Basophils Percent Auto 0.5 % (0.0-3.0); Eosinophils Absolute Auto 0.12 K/uL (0.00-0.50); Eosinophils Percent Auto 1.6 % (0.0-7.0); Hematocrit 42.1 % (33.0-51.0); Hemoglobin* 13.6 gm/dL (12.0-16.0); Immature Granulocytes Abs Auto 0.02 K/uL (0.00-0.30); Immature Granulocytes Pct Auto 0.3 %; Lymphocytes Percent Auto 11.5 % (20-44); Mean Corpuscular HGB Conc 32 gm/dL (32-36); Mean Corpuscular Hemoglobin 29 pg (26-34); Mean Corpuscular Volume 90 fL (80-100); Neutrophils Percent Auto 78.1 % (42.0-72.0); Platelet Count* 199 K/uL (140-440); RDW Coefficient of Variation % 15.5 % (11.5-15.5); Red Blood Count 4.66 m/uL (4.00-5.20); White Blood Count* 7.49 K/uL (4.50-11.00)
[2023-07-20 11:17] LABS: Slide Review Reflex No
[2023-07-20] MEDS: CYCLOBENZAPRINE HCL 10 MG TABLET 5 MG PO (11:18)
[2023-07-20] MEDS: IBUPROFEN 400 MG TABLET PO (11:18)
[2023-07-20 11:28] LABS: Chloride* 109 mmol/L (96-114); Potassium* 4.2 mmol/L (3.6-5.1); Sodium* 138 mmol/L (135-149)
[2023-07-20 11:30] LABS: Anion Gap 1 mEq/L (7-15); Aspartate Amino Transferase* 173 U/L (12-35); Bilirubin Total* 0.9 mg/dL (0.1-1.5); Carbon Dioxide* 28 mmol/L (20-32); Creatinine* 0.8 mg/dL (0.5-1.5); Est. Creatinine Clearance* 32.86; Estimated Glomerular Filt Rate 74 ml/min; Total Protein* 6.8 g/dL (6.0-8.3)
[2023-07-20 11:31] LABS: Alanine Aminotransferase* 110 U/L (4-35); Alkaline Phosphatase* 174 U/L (40-150); Blood Urea Nitrogen* 20 mg/dL (7-30); Glucose* 96 mg/dL (60-115)
[2023-07-20 12:39] LABS: Appearance Urine Clear (Clear); Bilirubin Urine 1+ (Negative); Blood Urine Negative (Negative); Color Urine Dark yellow (Yellow); Glucose Urine Negative (Negative); Ketones Urine Negative (Negative); Leukocyte Esterase Urine Trace (Negative); Nitrite Urine Negative (Negative); Protein Urine 1+ (Negative); Specific Gravity Urine 1.025 (1.000-1.030); Urobilinogen Urine 0.2 (0.2-1.0)
[2023-07-20 13:01] LABS: RBC Urine 0-2 (0-2); Squamous Epithelial Cell Urine Few (None-Few)
[2023-07-20 13:02] LABS: Bacteria Urine Few
== END 2023-07-20 13:49 | disposition home or self-care (01) ==
PROVIDERS: Emergency Provider Family Medicine; PCP Family Medicine
DX: M54.16 Radiculopathy, lumbar region (principal); C34.90 Malignant neoplasm of unspecified part of unspecified bronchus or lung
CPT/HCPCS: 36415; 72158; 80053; 81001; 82565; 85025; 87086; 99284; A9270; A9575

== ENCOUNTER 2023-08-06 10:03 | Outpatient (CLI) | payer MEDICARE, OTHER, SELFPAY ==
--- OUTSIDE RECORDS SUMMARY | 2023-08-06 10:06 | XMS_ITS | Clinical Summary ---
Author Organization [employer] [facility] [employer] Address [place], [place] [address] Care Team Providers Care People Manager Name Role Phone Clare Marin DO Primary Care Provider [phone] Allergies Active Allergy Reactions Criticality Noted Date Comments Diphenhydramine *Unknown - Pt Doesn' t Remember 08/12/2018 Oxycodone Nausea Only 08/05/2018 Penicillins Other - Describe In Comment Field 06/17/2006 Family history of allergy to this Oxycodone-Aspirin Nausea Only,Dizziness 009 Medications Medication Sig Dispensed Refills Start Date End Date Status zinc 15 mg tablet Take 15 mg by mouth. Once weekly 0 05/25/2009 Active multivitamin (MVI) tablet Take 1 tablet by mouth once daily. 0 05/25/2009 Active cholecalciferol (VITAMIN D) 1,000 unit capsuleIndications:V itamin D deficiency Take 2 capsules by mouth once daily. 0 12/23/2012 Active alendronate (FOSAMAX) 70 mg tabletIndications:Os teopenia, unspecified location Take 1 Tablet (70 mg) by mouth once a week in the morning. Take on empty stomach with full glass of water. Do not lie down for 1 hr. 13 Tablet 2 01/02/2023 Active traMADoL (ULTRAM) 50 mg tablet Take 50 mg by mouth at bedtime. 06/24/2023 Active lidocaine 5 % topical patchIndications:Acu te back pain with sciatica, unspecified laterality Apply on dry, clean, hairless skin. Apply 1 patch to painful area of skin for up to to 12 hours within 24 hour period. 30 Patch 11 07/18/2023 Active cyclobenzaprine (FLEXERIL) 10 mg tabletIndications:DD D (degenerative disc disease), lumbar Take 1 Tablet (10 mg) by mouth every 8 hours if needed for Muscle Spasm. 60 Tablet 08/04/2023 Active simvastatin (ZOCOR) 40 mg tabletIndications:Mi xed hyperlipidemia Take 1 Tablet (40 mg) by mouth at bedtime. 90 Tablet 3 08/04/2023 Active gabapentin (NEURONTIN) 300 mg capsuleIndications:H ereditary and idiopathic peripheral neuropathy Take 1 Capsule (300 mg) by mouth two times daily. 180 Capsule 3 08/04/2023 Active cyclobenzaprine (FLEXERIL) 10 mg tabletIndications:DD D (degenerative disc disease), lumbar Take 1 Tablet (10 mg) by mouth every 8 hours if needed for Muscle Spasm. 30 Tablet 05/06/2022 4 Discontinue d(Reorder (E-cancel not sent)) simvastatin (ZOCOR) 40 mg tabletIndications:Mi xed hyperlipidemia Take 1 Tablet (40 mg) by mouth at bedtime. 90 Tablet 3 06/05/2022 4 Discontinue d(Reorder (E-cancel not sent)) gabapentin (NEURONTIN) 300 mg capsuleIndications:H ereditary and idiopathic peripheral neuropathy TAKE 1 CAPSULE(300 MG) BY MOUTH TWICE DAILY 180 Capsule 05/18/2023 4 Discontinue d(Reorder (E-cancel not sent)) Hospital, Clinic, or Other Facility Administered Medication [...] Encounters Date Type Department Care Team Description 08/04/2023 Refill [facility] [address] [place] [address] Sir Marini Tasha, DO Refill Request (cyclobenzaprine (FLEXERIL) 10 mg tablet/Take 1 Tablet (10 mg) by mouth every 8 hours if needed for Muscle Spasm.//) 08/04/2023 Telephone [facility] [address] [place] [address] Clare Marin, DO Appointment (upcoming wellness appointment) 08/04/2023 Telephone [facility] [address] [place] [address] Terrell Salguero MD Appointment (cancel appointment/follow up) 07/28/2023 12:00 PM CDT Telemedicine [facility] [address] [place] [id number] Kings Thibodeaux MD Follow Up 07/28/2023 Telephone [facility] [address] [place] [address] Terrell Salguero MD Questions (Telemedicine visit 07/27) 07/28/2023 Travel 07/25/2023 Telephone [facility] [address] [place] [id number] Kings Thibodeaux MD Pre-visit call 07/24/2023 9:45 AM CDT - 07/24/2023 11:59 PM CDT Hospital Encounter [facility] [address] [place] [address] Clare Marin, DO Multiple lung nodules on CT; Liver masses 07/24/2023 Telephone [facility] [address] [place] [address] Clare Marin Tasha, DO Prior Authorization (lidocaine 5 % topical patch) 07/24/[address] [address] Clare Marin, DO Imaging 07/24/2023 Travel 07/21/2023 Telephone [facility] [address] [place] [address] [place], [facility] Cancer Referral (Multiple lung nodules) 07/21/2023 Telephone [facility] [address] [place] [address] Clare Marin Tasha, DO Questions (PET Scan ) 07/19/[address] [address] Clare Marin, DO Questions (Different location) 07/18/2023 11:25 AM CDT Office Visit [address] [address] Clare Marin, DO ER Follow up (Back pain, radiation down L leg, worse after receiving steroid injection/CT scan shows possible metastatic disease) 07/18/2023 Travel 07/14/2023 Telephone [facility] [address] [place] [address] Terrell Salguero MD BACK ISSUES 07/04/2023 10:40 AM CDT Office Visit [facility] at [address] [phone] Terrell Salguero MD Procedure (L4-5 ILESI) 06/30/[address] [address] Yessenia Cross MD Refill Request (Cyclobenzaprine) 06/24/2023 Orders Only [facility] Scanner 1 scan: (1-Ord) DOWLING, ABD/PELVIS, 06/24/2023 06/10/[address] [address] Terrell Salguero MD Error-please disregard 06/09/2023 Telephone [facility] [address] [place] [address] Terrell Salguero MD Appointment Request (Back pain) 05/26/2023 2:10 PM CDT Office Visit [facility] [address] [place] [address] Shaqra Clare Tasha, DO Syncope (Pt reports fainting Friday morning 05/23 - felt woozy prior to this happening, did hit head but reports not losing consciousness - no headaches or vision changes. Was checked out by EMS, vitals were stable ) 05/26/2023 Travel 05/26/2023 Telephone [facility] [address] [place] [address] Patrickqra Clare Tasha, DO Dizziness 05/23/2023 3:00 PM CDT Office Visit [facility] [address] [place] [address] Shaqra Clare Tasha, DO Leg Pain/problem (Lump on L navarro from metal puncture, x2 months); Derm Problem (Spot on tip of nose x3 years would like looked at); Ear Problem (Look in ears - see if they need to be cleaned out) 05/23/2023 Travel 05/17/2023 Refill [facility] [address] [place] [address] Nga Sanchez MD Refill Request (Gabapentin) from [...] Date Smoking Tobacco: Light Smoker Cigarettes 0.3 62.5 Started: 02/10/1960 Passive Smoke Exposure: Past Smokeless Tobacco: Never Comments:<1 pk/week Alcohol Use Standard Drinks/Week Comments No 0 (1 standard drink = 0.6 oz pur e alcohol) none PHQ-2 Answer Date Recorded PHQ-2 TOTAL SCORE [...] Care Team (Late st Contact Info) Description 08/08/2023 9:20 AM CDT Office Visit [facility] [address] [place] [address] Terrell Salguero MD [address] [place] [address] Health Maintenance Due Date Last Done Comments [...] Procedure Name Priority Date/Time Associated Diagnosis Comments PET CT SKULL BASE TO MID THIGH INITIAL TREAT STAT 07/24/2023 11:09 AM CDT Multiple lung nodules on CT Liver masses AMB EPIDURAL STEROID INJECTION Routine 07/04/2023 12:00 AM CDT Lumbar radiculopathy Lumbar disc herniation Degenerative scoliosis in adult patient DDD (degenerative disc disease), lumbar SCAN-CT INTERPRETATION 12:00 AM CDT XR DXA BONE DENSITY 2 SITES AXIAL Routine 08/29/2022 10:32 AM CDT Osteopenia, unspecified location Other specified disorders of bone density and structure, other site from Last 3 Months or Most Recently Relevant to Health Maintenance Results * PET CT SKULL BASE TO MID THIGH INITIAL TREAT (07/24/2023 11:09 AM CDT) Anatomical Region Laterality Modality Positron Emissio n Tomography (PET) 07/24/2023 3:04 PM CDT Impressions 07/24/2023 3:04 PM CDT 1. 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 2. Avid cervical, supraclavicular, thoracic, upper abdominal and bilateral upper retroperitoneal lymph nodes are consistent with extensive metastatic janice disease as detailed in the findings . 3. Multifocal faintly sclerotic skeletal lesions with uptake are consistent with diffuse osseous metastatic disease . 4. Bilobar tracer avid hepatic lesions are consistent with diffuse hepatic metastatic disease. 5. Asymmetric nodular thickening the left adrenal gland with mild uptake is nonspecific. Attention on follow-up 6. Other nonacute findings as detailed in the body of the report. Dictated by Dimitris Alejandro MD @ 07/24/2023 3:04:31 PM (Electronically Signed) Narrative 07/24/2023 3:04 PM CDT For Patients: ??As a result of the 21st Century Cures Act, medical imaging exams and procedure reports are released immediately into your electronic medical record. ??You may view this report before your referring provider. ??If you have questions, please contact your health care provider. EXAM: PET-CT SKULL BASE TO THIGH CLINICAL INFORMATION: 82-yo Female with multiple lung nodules, liver lesions and abdominal lymphadenopathy. Patient is referred for further characterization. TECHNIQUE: Radiopharmaceutical: 11.83 mCi of 18F-FDG Intravenous injection site: LAC Uptake time: 54 minutes Blood glucose level at the time of injection: 80 mg/dL Field of view: Skull base to mid-thighs CT protocol: The low-dose, free-breathing, noncontrast CT performed as part of this study is designed for the purposes of attenuation correction and lesion localization, and it is neither sufficient, nor it should be substituted for diagnostic purposes. COMPARISON: CT abdomen pelvis 07/17/2023 FINDINGS: Physiologic background liver standardized uptake value (SUV mean and SUV max) reported for comparison between PET studies: 2.2 and 3.0. Visualized head and neck: Physiologic uptake in the visualized brain. No mass effect. Lucency and uptake right frontal maxilla, SUV 3.3. Possible periapical abscess. Head and neck lymph nodes: Left parotid/periparotid, small upper cervical, adjacent low left neck and left supraclavicular lymph nodes with uptake are suspicious for metastatic janice disease. For example: Adjacent low left neck/medial supraclavicular lymph nodes, largest 1.1 cm short axis, SUV max 19.1 (fused image 65). Lungs: No abnormal left lung uptake. Multiple tracer avid right lower lobe lung nodules, an ill-defined right infrahilar masslike opacity and diffuse peribronchovascular and nodular interlobular septal thickening with uptake throughout the right lower lobe and posterior right middle lobe is most consistent with multifocal malignancy and ??likely lymphangitic tumoral spread. For example: Lateral right lower lobe nodule, 2.1 cm, SUV max 13.5 (fused image 127). Right infrahilar masslike opacity, 3.8 x 3.2 cm, SUV max 11.4 (fused image 117). Posterolateral right lower lobe nodular density, 0.9 cm, SUV max 6.2 (fused image 110). Thoracic lymph nodes: Extensive multi station mediastinal and bilateral hilar lymphadenopathy with intense uptake includes conglomerate right paratracheal, subcarinal and right hilar/perihilar lymph nodes suspicious for metastatic janice disease. For example: Lower right paratracheal janice mass, 2.7 cm short axis, SUV max 15.4 (fused image 89 close. Conglomerate subcarinal janice mass, 3.2 cm short axis, SUV max 14.1 (fused image 103). Right hilar/perihilar janice mass, 2.8 cm short axis, SUV max 15.3 (fused image 104). Other chest findings: Small right pleural fluid. Small pericardial fluid. Diffuse coronary vascular calcifications. Hepatobiliary: Multifocal bilobar low-density liver lesions with uptake are consistent with diffuse hepatic metastatic disease. For example: Low-density central liver lesion, 2.4 cm, SUV max 15.4 (fused image 141). Low-density inferior segment 3 lesion, 3.5 cm, SUV max 18.4 (fused image 166). Low-density anterior superior right lobe lesion, 1.7 cm short axis, SUV max 11.6 (fused image 131). Low-density anterior inferior right lobe lesion, 2.5 cm, SUV max 14.2 (fused image 175). Adrenal glands: No abnormal right adrenal uptake: Nodular thickening left adrenal gland with mild uptake, SUV max 3.8. Nonspecific. Spleen: No abnormal uptake. No splenomegaly. Pancreas: No abnormal uptake. Mass effect related to peripancreatic lymphadenopathy. Kidneys and bladder: No obstruction or abnormal uptake. Nonobstructing upper pole left renal calcification. Limited bladder distention. Bowel and peritoneum: No suspicious gastric, small bowel or colon uptake. Pelvic organs: No abnormal uptake. Abdominopelvic lymph nodes: Intensely avid conglomerate lymphadenopathy in the upper abdomen, bilateral upper retroperitoneum and smaller bilateral retrocrural lymph nodes are highly suspicious for metastatic janice disease. For example: Keegan hepatis janice mass, approximately 4.5 cm, SUV max 17.2 (fused image 151). Conglomerate periportal/peripancreatic janice mass, 5.8 cm, SUV max 18.5 (fused image 164). Portacaval janice mass, 3.8 cm, SUV max 15.4 (fused image 156). Musculoskeletal, soft tissues, skin: Multiple faintly sclerotic skeletal lesions with uptake involve the skull base/clivus, mandible, spine, thorax/ribs, pelvis, sacrum and right hip/proximal femur considered highly suspicious for osseous metastatic disease. For example: Right skull base/clivus lesion, SUV max 16.4. Right posterior 5th rib lesion, SUV max 9.1. T8 vertebral body lesion, SUV max 10.9. Anterior L2 vertebral body lesion, SUV max 9.2. Right sacral lesion, SUV max 21.6. Left posterior iliac lesion, SUV max 9.8. Right hip/proximal femur lesion, SUV max 15.2. Other: Diffuse aortoiliac atherosclerotic vascular calcifications. Procedure Note Dimitris Alejandro, DO - 07/24/2023 For Patients: As a result of the 21st Century Cures Act, medical imagingexams and procedure reports are released immediately into your electronicmedical record. You may view this report before your referring provider.If you have questions, please contact your health care provider. EXAM: PET-CT SKULL BASE TO THIGH CLINICAL INFORMATION: 82-yo Female with multiple lung nodules, liver lesions and abdominallymphadenopathy. Patient is referred for further characterization. TECHNIQUE: Radiopharmaceutical: 11.83 mCi of 18F-FDG Intravenous injection site: LAC Uptake time: 54 minutes Blood glucose level at the time of injection: 80 mg/dL Field of view: Skull base to mid-thighs CT protocol: The low-dose, free-breathing, noncontrast CT performed aspart of this study is designed for the purposes of attenuation correctionand lesion localization, and it is neither sufficient, nor it should besubstituted for diagnostic purposes. COMPARISON: CT abdomen pelvis 07/17/2023 FINDINGS: Physiologic background liver standardized uptake value (SUV mean and SUVmax) reported for comparison between PET studies: 2.2 and 3.0. Visualized head and neck: Physiologic uptake in the visualized brain. Nomass effect. Lucency and uptake right frontal maxilla, SUV 3.3. Possibleperiapical abscess. Head and neck lymph nodes: Left parotid/periparotid, small upper cervical,adjacent low left neck and left supraclavicular lymph nodes with uptakeare suspicious for metastatic janice disease. For example: Adjacent lowleft neck/medial supraclavicular lymph nodes, largest 1.1 cm short axis,SUV max 19.1 (fused image 65). Lungs: No abnormal left lung uptake. Multiple tracer avid right lower lobelung nodules, an ill-defined right infrahilar masslike opacity and diffuseperibronchovascular and nodular interlobular septal thickening with uptakethroughout the right lower lobe and posterior right middle lobe is mostconsistent with multifocal malignancy and likely lymphangitic tumoralspread. For example: Lateral right lower lobe nodule, 2.1 cm, SUV max 13.5(fused image 127). Right infrahilar masslike opacity, 3.8 x 3.2 cm, SUVmax 11.4 (fused image 117). Posterolateral right lower lobe nodulardensity, 0.9 cm, SUV max 6.2 (fused image 110). Thoracic lymph nodes: Extensive multi station mediastinal and bilateralhilar lymphadenopathy with intense uptake includes conglomerate rightparatracheal, subcarinal and right hilar/perihilar lymph nodes suspiciousfor metastatic janice disease. For example: Lower right paratracheal nodalmass, 2.7 cm short axis, SUV max 15.4 (fused image 89 close. Conglomeratesubcarinal janice mass, 3.2 cm short axis, SUV max 14.1 (fused image 103).Right hilar/perihilar janice mass, 2.8 cm short axis, SUV max 15.3 (fusedimage 104). Other chest findings: Small right pleural fluid. Small pericardial fluid.Diffuse coronary vascular calcifications. Hepatobiliary: Multifocal bilobar low-density liver lesions with uptakeare consistent with diffuse hepatic metastatic disease. For example:Low-density central liver lesion, 2.4 cm, SUV max 15.4 (fused image 141).Low-density inferior segment 3 lesion, 3.5 cm, SUV max 18.4 (fused [id number]). Low-density anterior superior right lobe lesion, 1.7 cm short axis,SUV max 11.6 (fused image 131). Low-density anterior inferior right lobelesion, 2.5 cm, SUV max 14.2 (fused image 175). Adrenal glands: No abnormal right adrenal uptake: Nodular thickening leftadrenal gland with mild uptake, SUV max 3.8. Nonspecific. Spleen: No abnormal uptake. No splenomegaly. Pancreas: No abnormal uptake. Mass effect related to peripancreaticlymphadenopathy. Kidneys and bladder: No obstruction or abnormal uptake. Nonobstructingupper pole left renal calcification. Limited bladder distention. Bowel and peritoneum: No suspicious gastric, small bowel or colon uptake. Pelvic organs: No abnormal uptake. Abdominopelvic lymph nodes: Intensely avid conglomerate lymphadenopathy inthe upper abdomen, bilateral upper retroperitoneum and smaller bilateralretrocrural lymph nodes are highly suspicious for metastatic nodaldisease. For example: Keegan hepatis janice mass, approximately 4.5 cm, SUVmax 17.2 (fused image 151). Conglomerate periportal/peripancreatic nodalmass, 5.8 cm, SUV max 18.5 (fused image 164). Portacaval janice mass, 3.8cm, SUV max 15.4 (fused image 156). Musculoskeletal, soft tissues, skin: Multiple faintly sclerotic skeletallesions with uptake involve the skull base/clivus, mandible, spine,thorax/ribs, pelvis, sacrum and right hip/proximal femur considered highlysuspicious for osseous metastatic disease. For example: Right skullbase/clivus lesion, SUV max 16.4. Right posterior 5th rib lesion, SUV max9.1. T8 vertebral body lesion, SUV max 10.9. Anterior L2 vertebral bodylesion, SUV max 9.2. Right sacral lesion, SUV max 21.6. Left posterioriliac lesion, SUV max 9.8. Right hip/proximal femur lesion, SUV max15.2. Other: Diffuse aortoiliac atherosclerotic vascular calcifications. IMPRESSION: 1. Avid right lower lobe lung nodules, an ill-defined right infrahilarmasslike opacity and diffuse nodular interlobular septal thickening withuptake in the right lower lobe and posterior right middle lobe are mostconsistent with multifocal right lung malignancy and very likelylymphangitic tumor spread. 2. Avid cervical, supraclavicular, thoracic, upper abdominal and bilateralupper retroperitoneal lymph nodes are consistent with extensive metastaticnodal disease as detailed in the findings . 3. Multifocal faintly sclerotic skeletal lesions with uptake areconsistent with diffuse osseous metastatic disease . 4. Bilobar tracer avid hepatic lesions are consistent with diffuse hepaticmetastatic disease. 5. Asymmetric nodular thickening the left adrenal gland with mild uptakeis nonspecific. Attention on follow-up 6. Other nonacute findings as detailed in the body of the report. Dictated by Dimitris Alejandro MD @ 07/24/2023 3:04:31 PM (Electronically Signed) Clare Tasha Shaqra DO PET * AMB EPIDURAL STEROID INJECTION (07/04/2023 12:00 AM CDT) Terrell Salguero MD NEUROLOGY ORD * SCAN-CT INTERPRETATION (06/24/2023 12:00 AM CDT) Anatomical Region Laterality Modality Other Scanner OTHER * (ABNORMAL) XR DXA BONE DENSITY 2 [...] recommended in 2 years. Laisha Mehta PA-C [facility] 09/03/2022 Narrative 09/03/2022 2:48 PM CDT For Patients: Results are automatically released to your [facility] ([facility]) account once available, in compliance with federal regulations. This means that you may see your results before your provider has had a chance to review them. Please allow 2-3 business days for your provider to comment on the results. XR DXA Bone Mineral Density (BMD) EXAM LOCATION: [address] [address] PATIENT NAME: Heidi Sarah DATE OF : [...] two scanners are made by the same on awake counselor. PROCEDURE: Dual-energy x-ray absorptiometry performed with routine [...] Documents on File Type Date Recorded Patient Contact Center Specialist Expl anation Healthcare Directive 03/06/2015 9:15 AM [facility] WILL, TERRIE ARIELLA, 04/18/1983 Care Teams People Manager Relationship Specialty Start Date End Date Clare Marin DO [address] [place] [address] PCP - General Family Practice 09/13/22
--- NOTE | 2023-08-06 10:15 | CRLHL7_ITS ---
For Patients: As a result of the Century Cures Act, medical imaging exams and procedure reports are released immediately into your electronic medical record. You may view this report before your referring provider. If you have questions, please contact your health care provider. EXAMINATION / PROCEDURE: Ultrasound-guided biopsy of left supraclavicular lymph node. INDICATION: Lymphadenopathy MEDICATIONS: 1% lidocaine 5 mL subcutaneous. COMPLICATIONS: None. Reviewed the ultrasound results following the procedure no signs of active bleeding, hematoma or extravasation PROCEDURE: The procedure, risks, and alternative therapies were discussed in detail, and written informed consent was obtained. A time out was performed to verify correct patient and procedure. A time out was performed to verify correct patient and procedure. The patient was placed supine on the table. Initial ultrasound of the left supraclavicular lymph node was performed. The biopsy site was localized. A raissa was made on the patient`s skin. The site was prepped and draped in the usual sterile fashion. All elements of maximum sterile barrier technique were used. Soft tissues were anesthetized with 1% lidocaine. Under real time sonographic guidance, a 18 gauge coaxial needle was advanced into the left supraclavicular lymph node. A total of 4 core biopsies were obtained. The samples were sent to pathology. The needle was removed and the site was covered with a sterile dressing. Completion ultrasound was performed which demonstrated no signs of active bleeding, hematoma or extravasation. The patient tolerated the procedure well without immediate postprocedural complication. IMPRESSION: Successful ultrasound-guided biopsy of left supraclavicular lymph node, with pathology pending. Dictated by Casper Montiel MD @ 08/06/2023 11:49:23 AM (Electronically Signed)
== END 2023-08-06 10:04 | disposition home or self-care (01) ==
LOC: US 10:05
PROVIDERS: PCP Family Medicine; Visit Provider Surgery
DX: R59.1 Generalized enlarged lymph nodes (principal); C77.0 Secondary and unspecified malignant neoplasm of lymph nodes of head, face and neck
CPT/HCPCS: 38505; 76942; 88305; 88341; 88342

== ENCOUNTER 2023-08-13 10:43 | Outpatient (RCR) | payer MEDICARE, OTHER, SELFPAY ==
--- NOTE | 2023-08-13 15:28 | ONC.NURNOTE ---
Pt seen by Dr. Hernandez today for initial oncology consult. Pt referred to hospice. Referral faxed to [facility] in [place]. They are in contact with pt's granddaughter Dalia and plan to visit with pt and family this evening.
== END 2023-08-18 23:59 | disposition home or self-care (01) ==
LOC: CCIC 10:43
PROVIDERS: PCP Family Medicine; Visit Provider Internal Medicine Hematology & Oncology
DX: C80.1 Malignant (primary) neoplasm, unspecified (principal)
CPT/HCPCS: 99202; 99205